=== PATIENT | female | born 1955 | race African-American/Black ===

== ENCOUNTER 2016-05-16 18:58 | Inpatient (IN) | payer OTHER ==
[~2016-05-16] VITALS: Ht 162.6 cm; Wt 151.0 kg
[~2016-05-16 18:58] MED LIST: ALBU18HF2 IH; ASPI-1035 PO; CALC-25 PO; FERR-43 PO; LISI1TAB13 PO; MULT-1146 PO; PANT40TA4 PO; POTA10TA69 PO; QUET25TA PO; QUET300T2 PO; TRAZ-132 PO
[2016-05-16] MEDS ORDERED: METHYLPREDNISOLONE SOD SUCC 125 MG/2 ML VIAL IV STA (19:12)
[2016-05-16] MEDS ORDERED: IPRATROPIUM BROMIDE (0.02%) 0.5MG/2.5ML NEB HHN STA (19:12)
[2016-05-16] MEDS ORDERED: ALBUTEROL (0.083%) 2.5MG/3ML NEB HHN SCH (19:30)
[2016-05-16] MEDS ORDERED: IPRATROPIUM/ALBUTEROL 0.5-3(2.5)MG/3ML NEB ONE (19:53)
[2016-05-16 20:12] LABS: BASOPHILS % 0.2 % (0.0-2.0); EOSINOPHILS % 7.1 % (0.0-5.0); HEMATOCRIT. 32.6 % (36.0-48.0); LYMPHOCYTES % 14.7 % (20.0-50.0); MEAN CORPUSCULAR HGB CONC 33.7 g/dL (31.0-37.0); MEAN CORPUSCULAR VOLUME 80.1 fL (81.0-99.0); MEAN PLATELET VOLUME 8.1 fl (7.4-10.4); MONOCYTES % 6.6 % (2.0-8.0); NEUTROPHILS % 71.4 % (40.0-76.0); PLATELET 302 x1000/uL (130-400); RED BLOOD CELL COUNT 4.06 mill/uL (4.2-5.4); WHITE BLOOD COUNT 9.5 x1000/uL (4.5-11.0)
[2016-05-16 20:19] LABS: D-DIMER 0.34 mg/L FEU (<0.50); PROTHROMBIN TIME 10.7 sec
[2016-05-16 20:25] LABS: ALANINE AMINOTRANSFERASE 20 IU/L (13-61); ALBUMIN 3.3 g/dL (3.4-5.0); ANION GAP 13; CALCIUM 8.5 mg/dL (8.5-10.1); CARBON DIOXIDE 32 mEq/L (21-32); CHLORIDE 98 mEq/L (98-107); INDEX HEMOLYSI 1 (1-3); INDEX ICTERIC 1 (1-4); INDEX LIPEMIC 1 (1-3); NT PRO B-TYPE NATRIURETIC PEP 29 pg/mL (5-125); TROPONIN I < 0.02 ng/mL (0.00-0.04); UREA NITROGEN BLOOD 23 mg/dL (7-21); eGFR > 60 mL/min (>60)
[2016-05-16] MEDS ORDERED: ALBUTEROL (0.5%) 2.5MG/0.5ML NEB HHN ONE (22:45)
[2016-05-16] MEDS ORDERED: ALBUTEROL (0.083%) 2.5MG/3ML NEB ONE (22:49)
[2016-05-16 22:50] LABS: BG BASE EXCESS 0.8 mmol/L (-2.0-2.0); BG CARBOXYHEMOGLOBIN 0.1 % (0.5-1.5); BG DEOXYHEMOGLOBIN 3.4 % (0.0-5.0); BG FRACTION INSPIRED OXYGEN 32; BG HCO3 ACT 26.9 mmol/L (22.0-26.0); BG METHEMOGLOBIN 0.3 % (0.0-1.5); BG OXYGEN SATURATION 96.6 % (92.0-98.5); BG OXYHEMOGLOBIN 96.2 % (94.0-97.0); BG PCO2 49.8 mmHg (35.0-45.0); BG PH 7.351 (7.350-7.450); BG PO2 96.1 mmHg (75.0-100.0); BG SAMPLE SITE LEFT RADIAL; BG TOTAL HEMOGLOBIN 11.8 g/dL (12.0-18.0); BG VENT MODE NASAL CANNULA
[2016-05-16] MEDS ORDERED: CLONIDINE 0.1MG TABLET PO PRN (23:00)
[2016-05-16] MEDS ORDERED: ONDANSETRON HCL 4MG/2ML VIAL IV PRN (23:00)
[2016-05-16] MEDS ORDERED: MAGNESIUM/ALUMINUM HYDROXIDE/SIMETHICONE 30ML UDC PO PRN (23:00)
[2016-05-16] MEDS ORDERED: DOCUSATE SODIUM 100MG CAPSULE PO PRN (23:00)
[2016-05-16 23:30] VITALS: BP 95/51
[2016-05-16 23:32] LABS: MAGNESIUM 1.7 mg/dL (1.8-2.4)
[2016-05-16 23:38] LABS: CALCIUM 8.4 mg/dL (8.5-10.1)
[2016-05-17] MEDS ORDERED: BUDESONIDE 0.5MG/2ML NEB HHN NR (00:22)
[2016-05-17] MEDS: IPRATROPIUM/ALBUTEROL 0.5-3(2.5)MG/3ML NEB INH PRN ×2 (00:42→04:31)
[2016-05-17] MEDS ORDERED: SPIR25TA4 PO (01:34)
[2016-05-17] MEDS ORDERED: AMOX500T2 PO (01:34)
[2016-05-17] MEDS ORDERED: METF-516 PO (01:34)
[2016-05-17] MEDS ORDERED: CLAR500T PO (01:34)
[2016-05-17] MEDS ORDERED: FURO20TA4 PO (01:34)
[2016-05-17] MEDS ORDERED: OCD PO (01:36)
[2016-05-17] MEDS ORDERED: DEXTROSE 50% WATER 50ML SYRINGE IV PRN (02:00)
[2016-05-17] MEDS: QUETIAPINE FUMARATE 100MG TABLET PO SCH ×2 (02:13→21:37)
[2016-05-17] MEDS: POTASSIUM CHLORIDE 10MEQ TABLET SR PO SCH ×2 (02:13→08:58)
[2016-05-17] MEDS: TRAZODONE HCL 100MG TABLET PO SCH ×2 (02:14→21:36)
[2016-05-17] MEDS: ACETAMINOPHEN 325MG TABLET PO PRN ×3 (03:36→18:54)
[2016-05-17 04:00] VITALS: BP 96/47
[2016-05-17] MEDS: METHYLPREDNISOLONE SOD SUCC 40 MG/ML VIAL IV SCH ×3 (05:33→21:42)
[2016-05-17] MEDS: BLOOD SUGAR DIAGNOSTIC STRIP TEST SCH ×4 (05:36→21:38)
[2016-05-17 06:17] LABS: HEMATOCRIT. 31.3 % (36.0-48.0); HEMOGLOBIN. 10.5 g/dL (12.0-16.0); MEAN CORPUSCULAR HGB CONC 33.5 g/dL (31.0-37.0); MEAN CORPUSCULAR VOLUME 80.7 fL (81.0-99.0); MEAN PLATELET VOLUME 8.4 fl (7.4-10.4); PLATELET 305 x1000/uL (130-400); RED BLOOD CELL COUNT 3.88 mill/uL (4.2-5.4); WHITE BLOOD COUNT 8.8 x1000/uL (4.5-11.0)
[2016-05-17 07:42] LABS: CREATINE KINASE 123 IU/L (26-192); CREATINE KINASE MB FRACTION 0.6 ng/mL (0.5-3.6); INDEX HEMOLYSI 1 (1-3); TROPONIN I < 0.02 ng/mL (0.00-0.04)
[2016-05-17 07:49] LABS: DIFFERENTIAL COMMENT 1
[2016-05-17 07:51] LABS: THYROID STIMULATING HORMONE 0.34 uIU/mL (0.36-3.74)
[2016-05-17 07:52] LABS: *AMPHETAMINES SCREEN URINE NEGATIVE (NEGATIVE); *BARBITURATES SCREEN URINE NEGATIVE (NEGATIVE); *BENZODIAZEPINES SCREEN URINE NEGATIVE (NEGATIVE); *COCAINE SCREEN URINE NEGATIVE (NEGATIVE); CANNABINOID URINE SCREEN NEGATIVE (NEGATIVE); ECSTASY MDMA SCREEN URINE CONF.TEST INDICATED (NEGATIVE); METHADONE URINE SCREEN NEGATIVE (NEGATIVE); OPIATES URINE SCREEN NEGATIVE (NEGATIVE); PHENCYCLIDINE URINE SCREEN NEGATIVE (NEGATIVE)
[2016-05-17 08:00] VITALS: BP 101/48
[2016-05-17] MEDS: INSULIN LISPRO 100 UNITS/ML SUBCUT SCH ×5 (08:10→21:00)
[2016-05-17] MEDS: ENOXAPARIN 30MG/0.3ML SYR SUBCUT SCH ×2 (08:58→21:38)
[2016-05-17] MEDS: FUROSEMIDE 20MG TABLET PO SCH (08:58)
[2016-05-17] MEDS: MULTIVITAMINS,THER W-MINERALS TABLET PO SCH (08:58)
[2016-05-17] MEDS: SPIRONOLACTONE 25MG TABLET PO SCH (08:58)
[2016-05-17] MEDS: METFORMIN HCL 500MG SR TABLET 24HR PO SCH (08:59)
[2016-05-17] MEDS: FERROUS SULFATE 325MG TABLET PO SCH (08:59)
[2016-05-17] MEDS: ASPIRIN 81MG EC TABLET PO SCH (08:59)
[2016-05-17] MEDS: QUETIAPINE FUMARATE 25MG TABLET PO SCH (08:59)
[2016-05-17] MEDS ORDERED: PANTOPRAZOLE 40MG DR TABLET PO SCH (09:00)
[2016-05-17] MEDS: LISINOPRIL 20MG TABLET PO SCH (09:00)
[2016-05-17] MEDS: HYDROCHLOROTHIAZIDE 25MG TABLET PO SCH (09:00)
[2016-05-17] MEDS: CALCIUM CARBONATE/VITAMIN D3 500MG TABLET PO SCH (09:02)
[2016-05-17] MEDS: BUDESONIDE 0.5MG/2ML NEB HHN SCH ×2 (10:06→21:12)
[2016-05-17] MEDS: IPRATROPIUM/ALBUTEROL 0.5-3(2.5)MG/3ML NEB HHN SCH ×4 (10:06→21:12)
[2016-05-17] MEDS ORDERED: MAGNESIUM 2 G PREMIX 50 ML IV NR (11:00)
[2016-05-17 12:00] VITALS: BP 92/63
[2016-05-17 13:00] LABS: BG BASE EXCESS -2.6 mmol/L (-2.0-2.0); BG CARBOXYHEMOGLOBIN 0.1 % (0.5-1.5); BG HCO3 ACT 22.7 mmol/L (22.0-26.0); BG OXYHEMOGLOBIN 90.9 % (94.0-97.0); BG PCO2 41.5 mmHg (35.0-45.0); BG PH 7.356 (7.350-7.450); BG PO2 63.1 mmHg (75.0-100.0); BG SAMPLE SITE RIGHT RADIAL; BG TOTAL HEMOGLOBIN 11.7 g/dL (12.0-18.0); BG VENT MODE ROOM AIR
[2016-05-17] MEDS: AMOXICILLIN 500 MG CAPSULE PO SCH ×2 (13:21→21:36)
[2016-05-17] MEDS: CLARITHROMYCIN 500MG TABLET PO SCH ×2 (13:21→21:36)
[2016-05-17 15:39] LABS: PLATELET ESTIMATE NORMAL
[2016-05-17 16:00] VITALS: BP 106/55
[2016-05-17] MEDS ORDERED: AMOXICILLIN TRIHYDRATE 500 MG PO SCH (17:00)
[2016-05-17] MEDS ORDERED: PANTOPRAZOLE SODIUM 40 MG/VIAL IV SCH (17:00)
[2016-05-17] MEDS ORDERED: AMOXICILLIN TRIHYDRATE PO SCH (17:00)
[2016-05-17 17:13] LABS: CREATINE KINASE 118 IU/L (26-192); INDEX HEMOLYSI 1 (1-3); TROPONIN I < 0.02 ng/mL (0.00-0.04)
[2016-05-17] MEDS: GUAIFENESIN 200MG/10ML SUGAR FREE UDC PO PRN (17:46)
[2016-05-17 20:00] VITALS: BP 100/59
[2016-05-17] MEDS: GUAIFENESIN 600MG ER TABLET PO SCH (21:36)
[2016-05-17] MEDS: PANTOPRAZOLE 40MG DR TABLET PO SCH (21:38)
[2016-05-18] VITALS: BP 91/43
[2016-05-18] MEDS: IPRATROPIUM/ALBUTEROL 0.5-3(2.5)MG/3ML NEB HHN SCH ×7 (00:45→20:00)
[2016-05-18] MEDS: ACETAMINOPHEN 325MG TABLET PO PRN ×3 (01:01→21:05)
[2016-05-18 04:00] VITALS: BP 122/64
[2016-05-18 06:35] LABS: BASOPHILS % 0.1 % (0.0-2.0); DIFFERENTIAL COMMENT 0; HEMATOCRIT. 30.2 % (36.0-48.0); HEMOGLOBIN. 10.2 g/dL (12.0-16.0); LYMPHOCYTES % 9.2 % (20.0-50.0); MEAN CORPUSCULAR HEMOGLOBIN 26.8 pg (28.0-32.0); MEAN CORPUSCULAR HGB CONC 33.8 g/dL (31.0-37.0); MEAN CORPUSCULAR VOLUME 79.2 fL (81.0-99.0); MEAN PLATELET VOLUME 8.3 fl (7.4-10.4); MONOCYTES % 8.1 % (2.0-8.0); NEUTROPHILS % 82.6 % (40.0-76.0); PLATELET 308 x1000/uL (130-400); RED BLOOD CELL COUNT 3.81 mill/uL (4.2-5.4); RED CELL DISTRIBUTION WIDTH 14.6 % (11.6-14.6); WHITE BLOOD COUNT 12.3 x1000/uL (4.5-11.0)
[2016-05-18 06:53] LABS: ANION GAP 13; CALCIUM 8.6 mg/dL (8.5-10.1); CARBON DIOXIDE 31 mEq/L (21-32); CHLORIDE 98 mEq/L (98-107); INDEX HEMOLYSI 1 (1-3); INDEX ICTERIC 1 (1-4); INDEX LIPEMIC 1 (1-3); UREA NITROGEN BLOOD 34 mg/dL (7-21); eGFR > 60 mL/min (>60)
[2016-05-18] MEDS: METHYLPREDNISOLONE SOD SUCC 40 MG/ML VIAL IV SCH ×3 (07:00→21:07)
[2016-05-18] MEDS: BLOOD SUGAR DIAGNOSTIC STRIP TEST SCH ×4 (07:00→21:07)
[2016-05-18 08:00] VITALS: BP 128/73
[2016-05-18] MEDS: INSULIN LISPRO 100 UNITS/ML SUBCUT SCH ×4 (08:10→22:00)
[2016-05-18] MEDS: BUDESONIDE 0.5MG/2ML NEB HHN SCH ×2 (08:11→20:01)
[2016-05-18] MEDS: CALCIUM CARBONATE/VITAMIN D3 500MG TABLET PO SCH (08:26)
[2016-05-18] MEDS: ASPIRIN 81MG EC TABLET PO SCH (08:26)
[2016-05-18] MEDS: FUROSEMIDE 20MG TABLET PO SCH (08:26)
[2016-05-18] MEDS: ENOXAPARIN 30MG/0.3ML SYR SUBCUT SCH ×2 (08:26→21:06)
[2016-05-18] MEDS: MULTIVITAMINS,THER W-MINERALS TABLET PO SCH (08:26)
[2016-05-18] MEDS: GUAIFENESIN 600MG ER TABLET PO SCH ×2 (08:26→21:04)
[2016-05-18] MEDS: QUETIAPINE FUMARATE 25MG TABLET PO SCH (08:26)
[2016-05-18] MEDS: LISINOPRIL 20MG TABLET PO SCH (08:27)
[2016-05-18] MEDS: SPIRONOLACTONE 25MG TABLET PO SCH (08:27)
[2016-05-18] MEDS: POTASSIUM CHLORIDE 10MEQ TABLET SR PO SCH (08:27)
[2016-05-18] MEDS: PANTOPRAZOLE 40MG DR TABLET PO SCH ×2 (08:28→21:06)
[2016-05-18] MEDS: CLARITHROMYCIN 500MG TABLET PO SCH ×2 (08:28→21:06)
[2016-05-18] MEDS: FERROUS SULFATE 325MG TABLET PO SCH (08:28)
[2016-05-18] MEDS: AZITHROMYCIN 500 MG TABLET PO SCH (08:28)
[2016-05-18] MEDS: METFORMIN HCL 500MG SR TABLET 24HR PO SCH (08:28)
[2016-05-18] MEDS: HYDROCHLOROTHIAZIDE 25MG TABLET PO SCH (08:28)
[2016-05-18] MEDS: AMOXICILLIN 500 MG CAPSULE PO SCH ×2 (09:38→21:05)
[2016-05-18 12:00] VITALS: BP 98/49
[2016-05-18] MEDS: GUAIFENESIN 200MG/10ML SUGAR FREE UDC PO PRN (12:10)
[2016-05-18] MEDS: IPRATROPIUM/ALBUTEROL 0.5-3(2.5)MG/3ML NEB HHN PRN (13:56)
[2016-05-18 16:00] VITALS: BP 93/45
[2016-05-18] MEDS ORDERED: DEXTROSE 50% WATER 50ML SYRINGE IV PRN (18:00)
[2016-05-18] MEDS ORDERED: INSULIN LISPRO 100 UNITS/ML SUBCUT NR (18:15)
[2016-05-18 20:00] VITALS: BP 111/62
[2016-05-18] MEDS ORDERED: BLOOD SUGAR DIAGNOSTIC STRIP TEST SCH (21:00)
[2016-05-18] MEDS: QUETIAPINE FUMARATE 100MG TABLET PO SCH (21:06)
[2016-05-18] MEDS: TRAZODONE HCL 100MG TABLET PO SCH (21:07)
[2016-05-19] VITALS: BP 110/60
[2016-05-19] MEDS: IPRATROPIUM/ALBUTEROL 0.5-3(2.5)MG/3ML NEB HHN PRN (01:13)
[2016-05-19 04:00] VITALS: BP 93/61
[2016-05-19] MEDS: IPRATROPIUM/ALBUTEROL 0.5-3(2.5)MG/3ML NEB HHN SCH ×5 (05:14→21:12)
[2016-05-19 05:44] LABS: ANION GAP 11; CALCIUM 8.8 mg/dL (8.5-10.1); CARBON DIOXIDE 32 mEq/L (21-32); CHLORIDE 98 mEq/L (98-107); INDEX HEMOLYSI 1 (1-3); INDEX ICTERIC 1 (1-4); INDEX LIPEMIC 1 (1-3); MAGNESIUM 2.4 mg/dL (1.8-2.4); UREA NITROGEN BLOOD 39 mg/dL (7-21); eGFR > 60 mL/min (>60)
[2016-05-19 06:15] LABS: BASOPHILS % 0.1 % (0.0-2.0); DIFFERENTIAL COMMENT 0; HEMATOCRIT. 31.9 % (36.0-48.0); HEMOGLOBIN. 10.5 g/dL (12.0-16.0); LYMPHOCYTES % 10.1 % (20.0-50.0); MEAN CORPUSCULAR HEMOGLOBIN 26.2 pg (28.0-32.0); MEAN CORPUSCULAR HGB CONC 33.1 g/dL (31.0-37.0); MEAN CORPUSCULAR VOLUME 79.4 fL (81.0-99.0); MEAN PLATELET VOLUME 8.5 fl (7.4-10.4); MONOCYTES % 6.2 % (2.0-8.0); NEUTROPHILS % 83.6 % (40.0-76.0); PLATELET 329 x1000/uL (130-400); RED BLOOD CELL COUNT 4.01 mill/uL (4.2-5.4); RED CELL DISTRIBUTION WIDTH 14.9 % (11.6-14.6); WHITE BLOOD COUNT 12.8 x1000/uL (4.5-11.0)
[2016-05-19] MEDS: METHYLPREDNISOLONE SOD SUCC 40 MG/ML VIAL IV SCH (07:10)
[2016-05-19] MEDS: BLOOD SUGAR DIAGNOSTIC STRIP TEST SCH ×4 (07:11→21:54)
[2016-05-19 08:00] VITALS: BP 130/71
[2016-05-19] MEDS: INSULIN LISPRO 100 UNITS/ML SUBCUT SCH ×4 (08:36→21:00)
[2016-05-19] MEDS: CALCIUM CARBONATE/VITAMIN D3 500MG TABLET PO SCH (08:38)
[2016-05-19] MEDS: CLARITHROMYCIN 500MG TABLET PO SCH ×2 (08:38→21:53)
[2016-05-19] MEDS: AMOXICILLIN 500 MG CAPSULE PO SCH ×2 (08:38→21:54)
[2016-05-19] MEDS: PANTOPRAZOLE 40MG DR TABLET PO SCH ×2 (08:38→21:54)
[2016-05-19] MEDS: FERROUS SULFATE 325MG TABLET PO SCH (08:38)
[2016-05-19] MEDS: QUETIAPINE FUMARATE 25MG TABLET PO SCH (08:38)
[2016-05-19] MEDS: AZITHROMYCIN 500 MG TABLET PO SCH (08:39)
[2016-05-19] MEDS: MULTIVITAMINS,THER W-MINERALS TABLET PO SCH (08:39)
[2016-05-19] MEDS: HYDROCHLOROTHIAZIDE 25MG TABLET PO SCH (08:39)
[2016-05-19] MEDS: ASPIRIN 81MG EC TABLET PO SCH (08:39)
[2016-05-19] MEDS: POTASSIUM CHLORIDE 10MEQ TABLET SR PO SCH (08:40)
[2016-05-19] MEDS: METFORMIN HCL 500MG SR TABLET 24HR PO SCH (08:40)
[2016-05-19] MEDS: GUAIFENESIN 600MG ER TABLET PO SCH ×2 (08:40→21:53)
[2016-05-19] MEDS: SPIRONOLACTONE 25MG TABLET PO SCH (08:41)
[2016-05-19] MEDS: ENOXAPARIN 30MG/0.3ML SYR SUBCUT SCH ×2 (08:42→21:00)
[2016-05-19] MEDS: BUDESONIDE 0.5MG/2ML NEB HHN SCH ×2 (09:17→21:12)
[2016-05-19 12:00] VITALS: BP 113/65
[2016-05-19 16:00] VITALS: BP 122/79
[2016-05-19 20:00] VITALS: BP 124/57
[2016-05-19] MEDS: QUETIAPINE FUMARATE 100MG TABLET PO SCH (21:53)
[2016-05-19] MEDS: TRAZODONE HCL 100MG TABLET PO SCH (21:53)
[2016-05-20] VITALS: BP 95/53
[2016-05-20] MEDS: IPRATROPIUM/ALBUTEROL 0.5-3(2.5)MG/3ML NEB HHN SCH ×4 (00:33→12:12)
[2016-05-20 04:00] VITALS: BP 117/66
[2016-05-20 06:47] LABS: BASOPHILS % 0.1 % (0.0-2.0); DIFFERENTIAL COMMENT 0; EOSINOPHILS % 0.1 % (0.0-5.0); HEMATOCRIT. 31.2 % (36.0-48.0); HEMOGLOBIN. 10.5 g/dL (12.0-16.0); MEAN CORPUSCULAR HEMOGLOBIN 26.5 pg (28.0-32.0); MEAN CORPUSCULAR HGB CONC 33.5 g/dL (31.0-37.0); MEAN PLATELET VOLUME 8.3 fl (7.4-10.4); MONOCYTES % 9.4 % (2.0-8.0); NEUTROPHILS % 48.4 % (40.0-76.0); PLATELET 304 x1000/uL (130-400); RED BLOOD CELL COUNT 3.95 mill/uL (4.2-5.4); RED CELL DISTRIBUTION WIDTH 14.8 % (11.6-14.6); WHITE BLOOD COUNT 11.6 x1000/uL (4.5-11.0)
[2016-05-20] MEDS: BLOOD SUGAR DIAGNOSTIC STRIP TEST SCH ×2 (06:52→12:53)
[2016-05-20 07:56] LABS: ANION GAP 10; CALCIUM 8.7 mg/dL (8.5-10.1); CARBON DIOXIDE 35 mEq/L (21-32); CHLORIDE 97 mEq/L (98-107); INDEX HEMOLYSI 1 (1-3); INDEX ICTERIC 1 (1-4); INDEX LIPEMIC 1 (1-3); MAGNESIUM 2.3 mg/dL (1.8-2.4); UREA NITROGEN BLOOD 34 mg/dL (7-21); eGFR > 60 mL/min (>60)
[2016-05-20 08:02] VITALS: BP 109/72
[2016-05-20] MEDS: BUDESONIDE 0.5MG/2ML NEB HHN SCH (08:07)
[2016-05-20] MEDS: INSULIN LISPRO 100 UNITS/ML SUBCUT SCH ×2 (08:10→12:53)
[2016-05-20] MEDS: PANTOPRAZOLE 40MG DR TABLET PO SCH (08:56)
[2016-05-20] MEDS: METFORMIN HCL 500MG SR TABLET 24HR PO SCH (08:59)
[2016-05-20] MEDS: MULTIVITAMINS,THER W-MINERALS TABLET PO SCH (08:59)
[2016-05-20] MEDS: AMOXICILLIN 500 MG CAPSULE PO SCH (08:59)
[2016-05-20] MEDS: CLARITHROMYCIN 500MG TABLET PO SCH (08:59)
[2016-05-20] MEDS: CALCIUM CARBONATE/VITAMIN D3 500MG TABLET PO SCH (08:59)
[2016-05-20] MEDS: HYDROCHLOROTHIAZIDE 25MG TABLET PO SCH (08:59)
[2016-05-20] MEDS: AZITHROMYCIN 500 MG TABLET PO SCH (08:59)
[2016-05-20] MEDS: ASPIRIN 81MG EC TABLET PO SCH (08:59)
[2016-05-20] MEDS: FERROUS SULFATE 325MG TABLET PO SCH (09:00)
[2016-05-20] MEDS: ENOXAPARIN 30MG/0.3ML SYR SUBCUT SCH (09:00)
[2016-05-20] MEDS: GUAIFENESIN 200MG/10ML SUGAR FREE UDC PO PRN (09:00)
[2016-05-20] MEDS: GUAIFENESIN 600MG ER TABLET PO SCH (09:12)
[2016-05-20] MEDS: QUETIAPINE FUMARATE 25MG TABLET PO SCH (09:12)
[2016-05-20 12:00] VITALS: BP 98/51
[2016-05-20 14:50] VITALS: BP 98/51
[2016-05-20] MEDS ORDERED: ENOXAPARIN 40MG/0.4ML SYR SUBCUT SCH (21:00)
== END 2016-05-20 16:25 | disposition home or self-care (01) | DRG 140 ==
LOC: ER 19:00 → 7WST 22:24
PROVIDERS: ADMIT Internal Medicine; ATTEND Internal Medicine
DX: J44.0 Chronic obstructive pulmonary disease with (acute) lower respiratory infection (principal); J96.00 Acute respiratory failure, unspecified whether with hypoxia or hypercapnia; I50.33 Acute on chronic diastolic (congestive) heart failure; J45.901 Unspecified asthma with (acute) exacerbation; E83.42 Hypomagnesemia; Z68.43 Body mass index [BMI] 50.0-59.9, adult; R13.10 Dysphagia, unspecified; I11.0 Hypertensive heart disease with heart failure; K21.9 Gastro-esophageal reflux disease without esophagitis; E11.9 Type 2 diabetes mellitus without complications; D64.9 Anemia, unspecified; F32.9 Major depressive disorder, single episode, unspecified; M10.9 Gout, unspecified; B96.81 Helicobacter pylori [H. pylori] as the cause of diseases classified elsewhere; F15.90 Other stimulant use, unspecified, uncomplicated; J32.9 Chronic sinusitis, unspecified; M79.7 Fibromyalgia; J20.9 Acute bronchitis, unspecified; E87.6 Hypokalemia; E66.9 Obesity, unspecified; F41.9 Anxiety disorder, unspecified; I83.90 Asymptomatic varicose veins of unspecified lower extremity; G43.909 Migraine, unspecified, not intractable, without status migrainosus; K59.00 Constipation, unspecified; R31.9 Hematuria, unspecified; Z82.5 Family history of asthma and other chronic lower respiratory diseases; Z88.8 Allergy status to other drugs, medicaments and biological substances; Z79.899 Other long term (current) drug therapy; Z90.710 Acquired absence of both cervix and uterus
CPT/HCPCS: 36415; 36600; 71010; 80048; 80053; 80061; 80305; 82375; 82550; 82553; 82805; 82962; 83036; 83735; 83880; 84443; 84484; 85025; 85379; 85610; 87070; 93005; 93306; 93970; 94640; 94664; 96374; 97162; 99291; J1650; J1815; J2920; J2930; J3475; J7040; J7611; J7620; J7626

== ENCOUNTER 2016-06-22 13:32 | Emergency (ER) | payer OTHER ==
[~2016-06-22] VITALS: Ht 162.6 cm; Wt 136.0 kg
[~2016-06-22 13:32] MED LIST changes: +AMOX500T2 PO; -CALC-25 PO; +CLAR500T PO; +FURO20TA4 PO; +METF-516 PO; +OCD PO; +SPIR25TA4 PO
[2016-06-22] MEDS ORDERED: KETOROLAC 30MG/ML VIAL IM ONE (16:30)
[2016-06-22 17:36] VITALS: BP 131/81
== END 2016-06-22 17:37 | disposition home or self-care (01) ==
LOC: ER 13:32
DX: F25.9 Schizoaffective disorder, unspecified (principal); M79.7 Fibromyalgia; J45.909 Unspecified asthma, uncomplicated; I10 Essential (primary) hypertension; Z98.890 Other specified postprocedural states; Z90.710 Acquired absence of both cervix and uterus; Z79.82 Long term (current) use of aspirin; Z92.29 Personal history of other drug therapy
CPT/HCPCS: 96372; 99283; J1885; Z7610

== ENCOUNTER 2016-06-22 23:53 | Inpatient (IN) | payer OTHER ==
[~2016-06-22] VITALS: Ht 162.6 cm; Wt 149.2 kg
[2016-06-23] VITALS (8 sets, daily range): BP systolic 83–145; BP diastolic 32–72
[2016-06-23] MEDS ORDERED: SODIUM CHLORIDE 0.9% 1,000 ML IV ONE ×2 (01:05)
[2016-06-23 01:53] LABS: BASOPHILS % 0.3 % (0.0-2.0); DIFFERENTIAL COMMENT 0; EOSINOPHILS % 2.5 % (0.0-5.0); HEMATOCRIT. 29.1 % (36.0-48.0); HEMOGLOBIN. 9.8 g/dL (12.0-16.0); LYMPHOCYTES % 28.3 % (20.0-50.0); MEAN CORPUSCULAR HEMOGLOBIN 26.8 pg (28.0-32.0); MEAN CORPUSCULAR HGB CONC 33.6 g/dL (31.0-37.0); MEAN CORPUSCULAR VOLUME 79.8 fL (81.0-99.0); MEAN PLATELET VOLUME 8.5 fl (7.4-10.4); MONOCYTES % 8.1 % (2.0-8.0); NEUTROPHILS % 60.8 % (40.0-76.0); PLATELET 299 x1000/uL (130-400); RED BLOOD CELL COUNT 3.64 mill/uL (4.2-5.4); RED CELL DISTRIBUTION WIDTH 15.2 % (11.6-14.6); WHITE BLOOD COUNT 9.5 x1000/uL (4.5-11.0)
[2016-06-23 01:58] LABS: PARTIAL THROMBOPLASTIN TIME 25.7 sec (24.0-34.0); PROTHROMBIN TIME 10.8 sec
[2016-06-23 02:09] LABS: ALANINE AMINOTRANSFERASE 12 IU/L (13-61); ALBUMIN 2.9 g/dL (3.4-5.0); CALCIUM 8.5 mg/dL (8.5-10.1); CARBON DIOXIDE 26 mEq/L (21-32); CHLORIDE 105 mEq/L (98-107); ETHANOL BLOOD < 10 mg/dL; INDEX HEMOLYSI 1 (1-3); INDEX ICTERIC 1 (1-4); INDEX LIPEMIC 1 (1-3); LIPASE 160 IU/L (73-393); NT PRO B-TYPE NATRIURETIC PEP 61 pg/mL (5-125); TROPONIN I < 0.02 ng/mL (0.00-0.04); UREA NITROGEN BLOOD 28 mg/dL (7-21); eGFR 29 mL/min (>60)
[2016-06-23 02:11] LABS: ACETAMINOPHEN < 2 ug/mL (10-30); ANION GAP 13; MAGNESIUM 1.6 mg/dL (1.8-2.4)
[2016-06-23] MEDS ORDERED: POTASSIUM CHLORIDE 20MEQ TABLET SR PO ONE (02:45)
[2016-06-23] MEDS ORDERED: MAGNESIUM 1 G PREMIX 100 ML IV ONE (02:45)
[2016-06-23 07:48] LABS: *AMPHETAMINES SCREEN URINE NEGATIVE (NEGATIVE); *BARBITURATES SCREEN URINE NEGATIVE (NEGATIVE); *BENZODIAZEPINES SCREEN URINE NEGATIVE (NEGATIVE); *COCAINE SCREEN URINE NEGATIVE (NEGATIVE); CANNABINOID URINE SCREEN NEGATIVE (NEGATIVE); ECSTASY MDMA SCREEN URINE NEGATIVE (NEGATIVE); METHADONE URINE SCREEN NEGATIVE (NEGATIVE); OPIATES URINE SCREEN NEGATIVE (NEGATIVE); PHENCYCLIDINE URINE SCREEN NEGATIVE (NEGATIVE)
[2016-06-23] MEDS ORDERED: DEXTROSE 50% WATER 50ML SYRINGE IV PRN (08:15)
[2016-06-23 08:58] LABS: ANION GAP 10; CALCIUM 8.5 mg/dL (8.5-10.1); CARBON DIOXIDE 29 mEq/L (21-32); CHLORIDE 106 mEq/L (98-107); CREATINE KINASE 146 IU/L (26-192); INDEX HEMOLYSI 1 (1-3); INDEX ICTERIC 1 (1-4); INDEX LIPEMIC 1 (1-3); MAGNESIUM 2.2 mg/dL (1.8-2.4); TROPONIN I < 0.02 ng/mL (0.00-0.04); UREA NITROGEN BLOOD 28 mg/dL (7-21); eGFR 40 mL/min (>60)
[2016-06-23] MEDS: SODIUM CHLORIDE 0.9% 1,000 ML IV SCH ×3 (09:32→21:18)
[2016-06-23] MEDS: BLOOD SUGAR DIAGNOSTIC STRIP TEST SCH ×3 (11:22→20:35)
[2016-06-23] MEDS: INSULIN LISPRO 100 UNITS/ML SUBCUT SCH ×3 (12:20→20:40)
[2016-06-23 12:48] LABS: T3 FREE 2.28 pg/ml (2.18-3.98); T4 FREE 0.93 ng/dL (0.76-1.46)
[2016-06-23 17:51] LABS: CREATINE KINASE 137 IU/L (26-192); CREATINE KINASE MB FRACTION 0.8 ng/mL (0.5-3.6); INDEX HEMOLYSI 1 (1-3); TROPONIN I < 0.02 ng/mL (0.00-0.04)
[2016-06-23] MEDS: IPRATROPIUM/ALBUTEROL 0.5-3(2.5)MG/3ML NEB HHN PRN ×2 (18:34→21:36)
[2016-06-23 23:38] LABS: CREATINE KINASE 126 IU/L (26-192); CREATINE KINASE MB FRACTION 0.7 ng/mL (0.5-3.6); INDEX HEMOLYSI 1 (1-3); TROPONIN I < 0.02 ng/mL (0.00-0.04)
[2016-06-24] VITALS (13 sets, daily range): BP systolic 100–135; BP diastolic 36–85
[2016-06-24] MEDS ORDERED: TRAZODONE HCL 100MG TABLET PO SCH ×2 (03:00→21:00)
[2016-06-24] MEDS ORDERED: QUETIAPINE FUMARATE 100MG TABLET PO SCH (03:00)
[2016-06-24] MEDS: SODIUM CHLORIDE 45ML SPRAY NS PRN ×2 (03:11→12:34)
[2016-06-24] MEDS: SODIUM CHLORIDE 0.9% 1,000 ML IV SCH (04:15)
[2016-06-24] MEDS: BLOOD SUGAR DIAGNOSTIC STRIP TEST SCH ×2 (05:55→12:11)
[2016-06-24 06:16] LABS: BASOPHILS % 0.5 % (0.0-2.0); EOSINOPHILS % 6.7 % (0.0-5.0); HEMATOCRIT. 29.2 % (36.0-48.0); HEMOGLOBIN. 9.9 g/dL (12.0-16.0); LYMPHOCYTES % 38.4 % (20.0-50.0); MEAN CORPUSCULAR HEMOGLOBIN 27.1 pg (28.0-32.0); MEAN CORPUSCULAR HGB CONC 33.7 g/dL (31.0-37.0); MEAN CORPUSCULAR VOLUME 80.4 fL (81.0-99.0); MEAN PLATELET VOLUME 8.6 fl (7.4-10.4); MONOCYTES % 6.3 % (2.0-8.0); NEUTROPHILS % 48.1 % (40.0-76.0); PLATELET 298 x1000/uL (130-400); RED BLOOD CELL COUNT 3.64 mill/uL (4.2-5.4); WHITE BLOOD COUNT 7.7 x1000/uL (4.5-11.0)
[2016-06-24 07:19] LABS: CHLORIDE 106 mEq/L (98-107); INDEX HEMOLYSI 1 (1-3); INDEX ICTERIC 1 (1-4); INDEX LIPEMIC 1 (1-3)
[2016-06-24] MEDS: INSULIN LISPRO 100 UNITS/ML SUBCUT SCH ×2 (07:20→12:11)
[2016-06-24 08:25] LABS: ANION GAP 15; CALCIUM 8.4 mg/dL (8.5-10.1); CARBON DIOXIDE 25 mEq/L (21-32); UREA NITROGEN BLOOD 20 mg/dL (7-21); eGFR > 60 mL/min (>60)
[2016-06-24] MEDS ORDERED: QUETIAPINE FUMARATE 25MG TABLET PO SCH (09:00)
[2016-06-24] MEDS: IPRATROPIUM/ALBUTEROL 0.5-3(2.5)MG/3ML NEB HHN PRN (12:22)
== END 2016-06-24 17:00 | disposition home health service (06) | DRG 460 ==
LOC: ER 06-23 00:10 → 3WST 06-23 04:22
PROVIDERS: ADMIT Internal Medicine; ATTEND Internal Medicine
DX: N17.9 Acute kidney failure, unspecified (principal); G93.40 Encephalopathy, unspecified; J45.901 Unspecified asthma with (acute) exacerbation; Z68.43 Body mass index [BMI] 50.0-59.9, adult; E11.9 Type 2 diabetes mellitus without complications; I10 Essential (primary) hypertension; D50.9 Iron deficiency anemia, unspecified; F32.9 Major depressive disorder, single episode, unspecified; E86.0 Dehydration; M10.9 Gout, unspecified; E66.9 Obesity, unspecified; F20.9 Schizophrenia, unspecified; F41.9 Anxiety disorder, unspecified; M79.7 Fibromyalgia; R31.9 Hematuria, unspecified; I83.90 Asymptomatic varicose veins of unspecified lower extremity; R31.29 Other microscopic hematuria; Z91.013 Allergy to seafood; Z90.710 Acquired absence of both cervix and uterus
CPT/HCPCS: 36415; 70450; 71010; 80048; 80053; 80305; 80307; 80329; 82550; 82553; 82962; 83540; 83550; 83605; 83690; 83735; 83880; 84439; 84443; 84481; 84484; 85025; 85044; 85610; 85730; 87040; 93005; 94640; 96361; 96365; 96366; 97162; 97165; 97535; 99291; G0482; J1815; J3475; J7030; J7620

== ENCOUNTER 2016-10-29 11:04 | Inpatient (IN) | payer OTHER ==
[~2016-10-29] VITALS: Ht 162.6 cm; Wt 153.3 kg
[~2016-10-29 11:04] MED LIST changes: -ASPI-1035 PO; +ASPI-1159 PO; +POTA10TA11 PO; -POTA10TA69 PO
[2016-10-29] MEDS ORDERED: FUROSEMIDE 40MG/4ML VIAL IV STA (11:41)
[2016-10-29 11:59] LABS: BASOPHILS % 0.6 % (0.0-2.0); EOSINOPHILS % 7.5 % (0.0-5.0); HEMATOCRIT. 29.6 % (36.0-48.0); HEMOGLOBIN. 10.1 g/dL (12.0-16.0); LYMPHOCYTES % 30.4 % (20.0-50.0); MEAN CORPUSCULAR HEMOGLOBIN 26.6 pg (28.0-32.0); MEAN CORPUSCULAR VOLUME 77.6 fL (81.0-99.0); MEAN PLATELET VOLUME 8.1 fl (7.4-10.4); MONOCYTES % 5.3 % (2.0-8.0); NEUTROPHILS % 56.2 % (40.0-76.0); PLATELET 282 x1000/uL (130-400); RED BLOOD CELL COUNT 3.81 mill/uL (4.2-5.4); RED CELL DISTRIBUTION WIDTH 15.2 % (11.6-14.6)
[2016-10-29 12:00] LABS: BG CARBOXYHEMOGLOBIN 0.2 % (0.5-1.5); BG FRACTION INSPIRED OXYGEN 21; BG METHEMOGLOBIN 0.1 % (0.0-1.5); BG OXYHEMOGLOBIN 85.7 % (94.0-97.0); BG PCO2 34.4 mmHg (35.0-45.0); BG PH 7.423 (7.350-7.450); BG PO2 52.9 mmHg (75.0-100.0); BG SAMPLE SITE RIGHT BRACHIAL; BG TOTAL HEMOGLOBIN 10.8 g/dL (12.0-18.0); BG VENT MODE ROOM AIR
[2016-10-29 12:11] LABS: INR 1.1; PARTIAL THROMBOPLASTIN TIME 23.6 sec (23.4-31.0); PROTHROMBIN TIME 10.9 sec (9.4-11.6)
[2016-10-29 12:17] LABS: CARBON DIOXIDE 25 mEq/L (21-32); CHLORIDE 108 mEq/L (98-107); TROPONIN I 0.03 ng/mL (0.00-0.04)
[2016-10-29 12:19] LABS: D-DIMER 8.17 mg/L FEU (<0.50)
[2016-10-29] MEDS ORDERED: ENOXAPARIN 150MG/ML SYR SUBCUT ONE (13:00)
[2016-10-29] MEDS ORDERED: IPRATROPIUM/ALBUTEROL 0.5-3(2.5)MG/3ML NEB HHN PRN (13:30)
[2016-10-29] MEDS ORDERED: MORPHINE SULFATE 4 MG/ML CPJ (NOT FOR IM USE) IV ONE (13:45)
[2016-10-29 15:02] VITALS: BP 87/52
[2016-10-29 15:05] VITALS: BP 87/52
[2016-10-29 16:00] VITALS: BP_SYST 113; BP_SYST 87; BP_DIAS 52; BP_DIAS 71
[2016-10-29] MEDS ORDERED: CLONIDINE 0.1MG TABLET PO PRN (16:00)
[2016-10-29] MEDS ORDERED: ACETAMINOPHEN 325MG TABLET PO PRN (16:00)
[2016-10-29] MEDS ORDERED: IPRATROPIUM/ALBUTEROL 0.5-3(2.5)MG/3ML NEB INH PRN (16:00)
[2016-10-29] MEDS ORDERED: ONDANSETRON HCL 4MG/2ML VIAL IV PRN (16:00)
[2016-10-29] MEDS ORDERED: ENOXAPARIN 40MG/0.4ML SYR SUBCUT SCH (16:30)
[2016-10-29 17:20] LABS: AMYLASE 44 IU/L (25-115)
[2016-10-29] MEDS: INSULIN LISPRO 100 UNITS/ML SUBCUT SCH ×2 (18:00→21:00)
[2016-10-29] MEDS ORDERED: DEXTROSE 50% WATER 50ML SYRINGE IV PRN (18:00)
[2016-10-29] MEDS: BLOOD SUGAR DIAGNOSTIC STRIP TEST SCH ×2 (18:02→21:00)
[2016-10-29] MEDS: FUROSEMIDE 40MG/4ML VIAL IV SCH (18:29)
[2016-10-29] MEDS: HYDROCODONE/ACETAMINOPHEN 5/325MG TABLET PO PRN (18:32)
[2016-10-29 20:00] VITALS: BP 96/53
[2016-10-29] MEDS ORDERED: BLOOD SUGAR DIAGNOSTIC STRIP TEST SCH (21:00)
[2016-10-29] MEDS ORDERED: INSULIN LISPRO 100 UNITS/ML SUBCUT SCH (21:00)
[2016-10-29 21:35] LABS: CLARITY URINE CLEAR (CLEAR); COLOR URINE YELLOW (YELLOW); GLUCOSE URINE NEGATIVE (NEGATIVE); KETONES URINE NEGATIVE (NEGATIVE); LEUKOCYTE ESTERASE URINE NEGATIVE (NEGATIVE); NITRITE URINE NEGATIVE (NEGATIVE); OCCULT BLOOD URINE 2+ (NEGATIVE); PROTEIN URINE NEGATIVE (NEGATIVE); SPECIFIC GRAVITY URINE 1.011 (1.005-1.030); UROBILINOGEN URINE 0.2 E.U./dL (0.2-1.0)
[2016-10-29 21:51] LABS: *AMPHETAMINES SCREEN URINE NEGATIVE (NEGATIVE); *BARBITURATES SCREEN URINE NEGATIVE (NEGATIVE); *BENZODIAZEPINES SCREEN URINE NEGATIVE (NEGATIVE); *COCAINE SCREEN URINE NEGATIVE (NEGATIVE); CANNABINOID URINE SCREEN NEGATIVE (NEGATIVE); METHADONE URINE SCREEN NEGATIVE (NEGATIVE); OPIATES URINE SCREEN PRESUMTIVE POSITIVE (NEGATIVE); PHENCYCLIDINE URINE SCREEN NEGATIVE (NEGATIVE)
[2016-10-29] MEDS: TRAZODONE HCL 100MG TABLET PO SCH (22:44)
[2016-10-29] MEDS: QUETIAPINE FUMARATE 100MG TABLET PO SCH (22:44)
[2016-10-29 23:43] LABS: TROPONIN I 0.29 ng/mL (0.00-0.04)
[2016-10-30] VITALS (9 sets, daily range): BP systolic 91–135; BP diastolic 50–67
[2016-10-30] MEDS: BLOOD SUGAR DIAGNOSTIC STRIP TEST SCH ×4 (05:53→21:48)
[2016-10-30] MEDS: INSULIN LISPRO 100 UNITS/ML SUBCUT SCH ×4 (06:18→21:49)
[2016-10-30 06:31] LABS: BASOPHILS % 0.7 % (0.0-2.0); EOSINOPHILS % 6.6 % (0.0-5.0); HEMATOCRIT. 29.9 % (36.0-48.0); HEMOGLOBIN. 9.9 g/dL (12.0-16.0); LYMPHOCYTES % 37.7 % (20.0-50.0); MEAN CORPUSCULAR HEMOGLOBIN 26.1 pg (28.0-32.0); MEAN CORPUSCULAR VOLUME 78.9 fL (81.0-99.0); MEAN PLATELET VOLUME 8.5 fl (7.4-10.4); MONOCYTES % 7.3 % (2.0-8.0); NEUTROPHILS % 47.7 % (40.0-76.0); PLATELET 294 x1000/uL (130-400); RED CELL DISTRIBUTION WIDTH 15.2 % (11.6-14.6)
[2016-10-30 07:20] LABS: CREATINE KINASE MB FRACTION 1.6 ng/mL (0.5-3.6); TROPONIN I 0.2 ng/mL (0.00-0.04)
[2016-10-30] MEDS: FUROSEMIDE 40MG/4ML VIAL IV SCH (08:50)
[2016-10-30] MEDS: ASPIRIN 81MG EC TABLET PO SCH (08:51)
[2016-10-30] MEDS: HYDROCODONE/ACETAMINOPHEN 5/325MG TABLET PO PRN ×2 (08:53→14:46)
[2016-10-30] MEDS ORDERED: ENOXAPARIN 40MG/0.4ML SYR SUBCUT SCH (09:00)
[2016-10-30 11:58] LABS: CARBON DIOXIDE 27 mEq/L (21-32); CHLORIDE 105 mEq/L (98-107)
[2016-10-30] MEDS ORDERED: ENOXAPARIN 100MG/ML SYR SUBCUT SCH (12:00)
[2016-10-30 12:06] LABS: TOTAL IRON BINDING CAPACITY 232 ug/dL (250-450)
[2016-10-30 12:32] LABS: VITAMIN B12 SERUM 336 pg/mL (211-911)
[2016-10-30] MEDS ORDERED: BUDESONIDE 0.5MG/2ML NEB HHN SCH (14:30)
[2016-10-30] MEDS: METHYLPREDNISOLONE SOD SUCC 40 MG/ML VIAL IV SCH ×2 (14:41→21:48)
[2016-10-30] MEDS: IPRATROPIUM/ALBUTEROL 0.5-3(2.5)MG/3ML NEB HHN SCH ×2 (15:05→21:10)
[2016-10-30] MEDS: TRAZODONE HCL 100MG TABLET PO SCH (21:48)
[2016-10-30] MEDS: QUETIAPINE FUMARATE 100MG TABLET PO SCH (21:48)
[2016-10-31] VITALS (12 sets, daily range): BP systolic 102–128; BP diastolic 55–83
[2016-10-31] MEDS: HYDROCODONE/ACETAMINOPHEN 5/325MG TABLET PO PRN ×3 (00:48→15:37)
[2016-10-31] MEDS: IPRATROPIUM/ALBUTEROL 0.5-3(2.5)MG/3ML NEB HHN SCH ×6 (01:12→19:46)
[2016-10-31] MEDS ORDERED: HEPARIN 5000 UNITS/ML VIAL IV NR (06:00)
[2016-10-31] MEDS ORDERED: HEPARIN BOLUS PRN aPTT <36 IV (06:00)
[2016-10-31] MEDS ORDERED: HEPARIN BOLUS PRN aPTT 37-44 IV (06:00)
[2016-10-31] MEDS ORDERED: HEPARIN 25,000 UNITS PREMIX 500 ML IV SCH (06:00)
[2016-10-31] MEDS: METHYLPREDNISOLONE SOD SUCC 40 MG/ML VIAL IV SCH ×2 (06:02→17:27)
[2016-10-31] MEDS: HEPARIN 25,000 UNITS PREMIX 500 ML IV SCH (06:15)
[2016-10-31] MEDS: BLOOD SUGAR DIAGNOSTIC STRIP TEST SCH ×4 (06:38→21:32)
[2016-10-31] MEDS: INSULIN LISPRO 100 UNITS/ML SUBCUT SCH ×4 (07:20→21:34)
[2016-10-31 07:42] LABS: BASOPHILS % 0.1 % (0.0-2.0); HEMATOCRIT. 32.5 % (36.0-48.0); LYMPHOCYTES % 11.7 % (20.0-50.0); MEAN CORPUSCULAR HEMOGLOBIN 26.4 pg (28.0-32.0); MEAN CORPUSCULAR VOLUME 78.1 fL (81.0-99.0); MEAN PLATELET VOLUME 8.9 fl (7.4-10.4); MONOCYTES % 1.2 % (2.0-8.0); PLATELET 284 x1000/uL (130-400); RED BLOOD CELL COUNT 4.16 mill/uL (4.2-5.4); RED CELL DISTRIBUTION WIDTH 15.1 % (11.6-14.6)
[2016-10-31 08:05] LABS: CARBON DIOXIDE 25 mEq/L (21-32); CREATINE KINASE 118 IU/L (26-192); PHOSPHORUS 2.6 mg/dL (2.5-4.9)
[2016-10-31 08:08] LABS: CREATINE KINASE MB FRACTION 1.3 ng/mL (0.5-3.6); TROPONIN I 0.06 ng/mL (0.00-0.04)
[2016-10-31 08:41] LABS: CHLORIDE 101 mEq/L (98-107)
[2016-10-31] MEDS: ASPIRIN 81MG EC TABLET PO SCH (08:48)
[2016-10-31] MEDS ORDERED: FUROSEMIDE 40MG/4ML VIAL IV SCH (09:00)
[2016-10-31] MEDS: NITROGLYCERIN OINT 1GM/INCH UDPKT TD SCH ×2 (12:39→17:29)
[2016-10-31] MEDS: TRAZODONE HCL 100MG TABLET PO SCH (21:31)
[2016-10-31] MEDS: QUETIAPINE FUMARATE 100MG TABLET PO SCH (21:32)
[2016-11-01] VITALS (16 sets, daily range): BP systolic 101–151; BP diastolic 47–82
[2016-11-01] MEDS: NITROGLYCERIN OINT 1GM/INCH UDPKT TD SCH ×4 (00:07→18:00)
[2016-11-01] MEDS: IPRATROPIUM/ALBUTEROL 0.5-3(2.5)MG/3ML NEB HHN SCH ×6 (00:08→21:31)
[2016-11-01 03:33] LABS: BASOPHILS % 0.1 % (0.0-2.0); HEMATOCRIT. 30.3 % (36.0-48.0); HEMOGLOBIN. 10.1 g/dL (12.0-16.0); MEAN CORPUSCULAR VOLUME 78.3 fL (81.0-99.0); MEAN PLATELET VOLUME 8.7 fl (7.4-10.4); MONOCYTES % 4.6 % (2.0-8.0); NEUTROPHILS % 85.3 % (40.0-76.0); PLATELET 288 x1000/uL (130-400); RED BLOOD CELL COUNT 3.87 mill/uL (4.2-5.4); RED CELL DISTRIBUTION WIDTH 15.4 % (11.6-14.6)
[2016-11-01 03:43] LABS: PHOSPHORUS 3.5 mg/dL (2.5-4.9); TROPONIN I 0.04 ng/mL (0.00-0.04)
[2016-11-01] MEDS: HEPARIN 25,000 UNITS PREMIX 500 ML IV SCH ×2 (04:12→22:22)
[2016-11-01] MEDS: METHYLPREDNISOLONE SOD SUCC 40 MG/ML VIAL IV SCH ×2 (06:07→17:56)
[2016-11-01] MEDS: BLOOD SUGAR DIAGNOSTIC STRIP TEST SCH ×4 (06:47→20:37)
[2016-11-01 07:12] LABS: ALBUMIN 3.3 g/dL (2.9-4.4); ALPHA-1-GLOBULIN 0.2 g/dL (0.0-0.4); ALPHA-2-GLOBULIN 0.7 g/dL (0.4-1.0); GAMMA GLOBULINS 1.3 g/dL (0.4-1.8); GLOBULIN TOTAL 3.3 g/dL (2.2-3.9); M-SPIKE Not Observed g/dL (Not Observed); TOTAL PROTEIN SERUM 6.6 g/dL (6.0-8.5)
[2016-11-01] MEDS: INSULIN LISPRO 100 UNITS/ML SUBCUT SCH ×4 (07:20→21:30)
[2016-11-01] MEDS: ASPIRIN 81MG EC TABLET PO SCH (08:03)
[2016-11-01] MEDS: HYDROCODONE/ACETAMINOPHEN 5/325MG TABLET PO PRN (08:08)
[2016-11-01] MEDS ORDERED: METHYLPREDNISOLONE SOD SUCC 40 MG/ML VIAL IV SCH (14:00)
[2016-11-01] MEDS ORDERED: DIPHENHYDRAMINE 50MG/ML VIAL IV SCH (14:00)
[2016-11-01] MEDS ORDERED: FAMOTIDINE 20MG/2ML VIAL IV SCH (14:00)
[2016-11-01] MEDS ORDERED: IOHEXOL-350 100 ML BOTTLE ONE (14:26)
[2016-11-01] MEDS ORDERED: SODIUM CHLORIDE 0.9% 10ML VIAL ONE (14:26)
[2016-11-01] MEDS: MORPHINE SULFATE 2 MG/ML CPJ (NOT FOR IM USE) IV PRN ×2 (18:07→22:16)
[2016-11-01] MEDS: DOCUSATE SODIUM 100MG CAPSULE PO SCH (20:34)
[2016-11-01] MEDS: TRAZODONE HCL 100MG TABLET PO SCH (20:35)
[2016-11-01] MEDS: QUETIAPINE FUMARATE 100MG TABLET PO SCH (20:37)
[2016-11-02] VITALS (13 sets, daily range): BP systolic 105–145; BP diastolic 47–93
[2016-11-02] MEDS: IPRATROPIUM/ALBUTEROL 0.5-3(2.5)MG/3ML NEB HHN SCH ×6 (00:53→20:27)
[2016-11-02] MEDS: NITROGLYCERIN OINT 1GM/INCH UDPKT TD SCH ×4 (01:20→17:11)
[2016-11-02 05:50] LABS: INR 1.1; PARTIAL THROMBOPLASTIN TIME 50.8 sec (23.4-31.0); PROTHROMBIN TIME 11.2 sec (9.4-11.6)
[2016-11-02 06:13] LABS: BASOPHILS % 0.1 % (0.0-2.0); HEMATOCRIT. 28.5 % (36.0-48.0); HEMOGLOBIN. 9.5 g/dL (12.0-16.0); LYMPHOCYTES % 13.3 % (20.0-50.0); MEAN CORPUSCULAR VOLUME 78.2 fL (81.0-99.0); MEAN PLATELET VOLUME 8.9 fl (7.4-10.4); MONOCYTES % 4.7 % (2.0-8.0); NEUTROPHILS % 81.9 % (40.0-76.0); PLATELET 294 x1000/uL (130-400); RED BLOOD CELL COUNT 3.64 mill/uL (4.2-5.4); RED CELL DISTRIBUTION WIDTH 15.6 % (11.6-14.6)
[2016-11-02] MEDS: METHYLPREDNISOLONE SOD SUCC 40 MG/ML VIAL IV SCH (06:44)
[2016-11-02] MEDS: MORPHINE SULFATE 2 MG/ML CPJ (NOT FOR IM USE) IV PRN ×2 (06:44→15:19)
[2016-11-02] MEDS: BLOOD SUGAR DIAGNOSTIC STRIP TEST SCH ×4 (06:49→20:35)
[2016-11-02 07:24] LABS: PHOSPHORUS 3.7 mg/dL (2.5-4.9); TROPONIN I 0.02 ng/mL (0.00-0.04)
[2016-11-02] MEDS: INSULIN LISPRO 100 UNITS/ML SUBCUT SCH ×4 (07:54→20:37)
[2016-11-02] MEDS: ASPIRIN 81MG EC TABLET PO SCH (08:11)
[2016-11-02] MEDS: DOCUSATE SODIUM 100MG CAPSULE PO SCH ×2 (08:11→20:38)
[2016-11-02] MEDS: ENOXAPARIN 150MG/ML SYR SUBCUT SCH (11:53)
[2016-11-02] MEDS: MAGNESIUM/ALUMINUM HYDROXIDE/SIMETHICONE 30ML UDC PO PRN (15:25)
[2016-11-02] MEDS: QUETIAPINE FUMARATE 100MG TABLET PO SCH (20:37)
[2016-11-02] MEDS: TRAZODONE HCL 100MG TABLET PO SCH (20:37)
[2016-11-02] MEDS: MORPHINE SULFATE 4 MG/ML CPJ (NOT FOR IM USE) IV PRN (20:40)
[2016-11-03] VITALS (13 sets, daily range): BP systolic 106–151; BP diastolic 56–87
[2016-11-03] MEDS: NITROGLYCERIN OINT 1GM/INCH UDPKT TD SCH ×3 (00:22→12:00)
[2016-11-03] MEDS: ENOXAPARIN 150MG/ML SYR SUBCUT SCH ×2 (00:22→12:20)
[2016-11-03] MEDS: IPRATROPIUM/ALBUTEROL 0.5-3(2.5)MG/3ML NEB HHN SCH ×4 (00:39→12:10)
[2016-11-03] MEDS: MORPHINE SULFATE 4 MG/ML CPJ (NOT FOR IM USE) IV PRN (04:32)
[2016-11-03] MEDS: MAGNESIUM/ALUMINUM HYDROXIDE/SIMETHICONE 30ML UDC PO PRN (05:14)
[2016-11-03] MEDS: BLOOD SUGAR DIAGNOSTIC STRIP TEST SCH ×2 (06:15→12:03)
[2016-11-03] MEDS: INSULIN LISPRO 100 UNITS/ML SUBCUT SCH ×2 (07:20→12:23)
[2016-11-03 07:33] LABS: BASOPHILS % 0.2 % (0.0-2.0); EOSINOPHILS % 0.3 % (0.0-5.0); HEMATOCRIT. 28.7 % (36.0-48.0); HEMOGLOBIN. 9.5 g/dL (12.0-16.0); LYMPHOCYTES % 43.3 % (20.0-50.0); MEAN CORPUSCULAR HEMOGLOBIN 26.2 pg (28.0-32.0); MEAN PLATELET VOLUME 9.1 fl (7.4-10.4); MONOCYTES % 6.3 % (2.0-8.0); NEUTROPHILS % 49.9 % (40.0-76.0); PLATELET 288 x1000/uL (130-400); RED BLOOD CELL COUNT 3.64 mill/uL (4.2-5.4); RED CELL DISTRIBUTION WIDTH 15.2 % (11.6-14.6)
[2016-11-03] MEDS: DOCUSATE SODIUM 100MG CAPSULE PO SCH (08:53)
[2016-11-03] MEDS: ASPIRIN 81MG EC TABLET PO SCH (08:53)
[2016-11-03] MEDS ORDERED: PREDNISONE 20MG TABLET PO SCH (09:00)
[2016-11-03] MEDS ORDERED: LACTULOSE 20G/30ML UDC PO PRN (10:15)
[2016-11-03] MEDS ORDERED: APIX5TAB PO (10:24)
[2016-11-03] MEDS ORDERED: AMLO2.5T45 PO (10:24)
== END 2016-11-03 16:15 | disposition home or self-care (01) | DRG 134 ==
LOC: ER 11:45 → ENRESERV 13:20 → 5WST 14:34 → 3WST 10-30 14:26
PROVIDERS: ADMIT Internal Medicine; ATTEND Internal Medicine
PROC: 3E013GC Introduction of Other Therapeutic Substance into Subcutaneous Tissue, Percutaneous Approach (ICD-10-PCS; principal; 2016-10-29)
DX: I26.99 Other pulmonary embolism without acute cor pulmonale (principal); J96.01 Acute respiratory failure with hypoxia; I50.33 Acute on chronic diastolic (congestive) heart failure; N17.9 Acute kidney failure, unspecified; E87.3 Alkalosis; I95.9 Hypotension, unspecified; E11.22 Type 2 diabetes mellitus with diabetic chronic kidney disease; I31.3 Pericardial effusion (noninflammatory); I13.0 Hypertensive heart and chronic kidney disease with heart failure and stage 1 through stage 4 chronic kidney disease, or unspecified chronic kidney disease; I27.2 Other secondary pulmonary hypertension; I27.81 Cor pulmonale (chronic); J45.901 Unspecified asthma with (acute) exacerbation; E87.70 Fluid overload, unspecified; E66.01 Morbid (severe) obesity due to excess calories; F20.9 Schizophrenia, unspecified; D63.8 Anemia in other chronic diseases classified elsewhere; F32.9 Major depressive disorder, single episode, unspecified; F41.9 Anxiety disorder, unspecified; K21.9 Gastro-esophageal reflux disease without esophagitis; K76.0 Fatty (change of) liver, not elsewhere classified; N18.9 Chronic kidney disease, unspecified; Z91.041 Radiographic dye allergy status; Z82.49 Family history of ischemic heart disease and other diseases of the circulatory system; Z90.710 Acquired absence of both cervix and uterus; Z79.82 Long term (current) use of aspirin; Z79.84 Long term (current) use of oral hypoglycemic drugs; Z79.899 Other long term (current) drug therapy; Z68.43 Body mass index [BMI] 50.0-59.9, adult
CPT/HCPCS: 36415; 36600; 51702; 71010; 71250; 71275; 76700; 78580; 78582; 80048; 80053; 80061; 80305; 81001; 82150; 82375; 82550; 82553; 82607; 82805; 82962; 83540; 83550; 83690; 83735; 83880; 84100; 84155; 84165; 84443; 84484; 85025; 85044; 85379; 85610; 85730; 87040; 93005; 93306; 93970; 94640; 96374; 96375; 97162; 99291; A4216; A9558; J1200; J1644; J1650; J1815; J1940; J2270; J2920; J3490; J7512; J7620; J7626; Q9967

== ENCOUNTER 2016-12-26 05:54 | Emergency (ER) | payer OTHER ==
[~2016-12-26] VITALS: Ht 167.6 cm; Wt 81.0 kg
[~2016-12-26 05:54] MED LIST changes: +AMLO2.5T45 PO; -AMOX500T2 PO; +APIX5TAB PO; -CLAR500T PO; -FURO20TA4 PO; -LISI1TAB13 PO; -POTA10TA11 PO; -SPIR25TA4 PO
[2016-12-26 06:48] LABS: BASOPHILS % 0.9 % (0.0-2.0); HEMATOCRIT. 32.6 % (36.0-48.0); HEMOGLOBIN. 11.3 g/dL (12.0-16.0); LYMPHOCYTES % 33.7 % (20.0-50.0); MEAN CORPUSCULAR HEMOGLOBIN 27.5 pg (28.0-32.0); MEAN CORPUSCULAR VOLUME 79.4 fL (81.0-99.0); MEAN PLATELET VOLUME 8.1 fl (7.4-10.4); MONOCYTES % 4.3 % (2.0-8.0); NEUTROPHILS % 49.1 % (40.0-76.0); PLATELET 308 x1000/uL (130-400); RED BLOOD CELL COUNT 4.11 mill/uL (4.2-5.4); RED CELL DISTRIBUTION WIDTH 15.2 % (11.6-14.6)
[2016-12-26 06:49] LABS: PROTHROMBIN TIME 10.9 sec (9.4-11.6)
[2016-12-26 06:58] LABS: CARBON DIOXIDE 31 mEq/L (21-32); CHLORIDE 104 mEq/L (98-107)
[2016-12-26 07:04] LABS: TROPONIN I < 0.02 ng/mL (0.00-0.04)
[2016-12-26] MEDS ORDERED: VISCOUS LIDOCAINE 2% 15 ML UDC PO STA (07:35)
[2016-12-26] MEDS ORDERED: MAGNESIUM/ALUMINUM HYDROXIDE/SIMETHICONE 30ML UDC PO STA (07:35)
[2016-12-26 08:12] VITALS: BP 119/69
== END 2016-12-26 08:36 | disposition left against medical advice (07) ==
LOC: ER 05:54 → EDBEDREQ 07:51 → EDBEDREQTM 07:51 → ENRESERV 08:04 → CANRESERV 08:04 → CANBEDREQ 08:34 → ER 08:36
DX: R07.89 Other chest pain (principal); E11.9 Type 2 diabetes mellitus without complications; I10 Essential (primary) hypertension; F20.9 Schizophrenia, unspecified; F41.9 Anxiety disorder, unspecified; F32.9 Major depressive disorder, single episode, unspecified; Z91.041 Radiographic dye allergy status; Z90.710 Acquired absence of both cervix and uterus
CPT/HCPCS: 36415; 71010; 80053; 83880; 84484; 85025; 85610; 93005; 99285; Z7610

== ENCOUNTER 2017-04-30 06:49 | Emergency (ER) | payer OTHER ==
[~2017-04-30] VITALS: Ht 162.6 cm; Wt 100.0 kg
[2017-04-30 09:10] LABS: PROTHROMBIN TIME 10.6 sec (9.4-11.6)
[2017-04-30 09:16] LABS: CHLORIDE 103 mEq/L (98-107)
[2017-04-30 09:21] LABS: TROPONIN I < 0.02 ng/mL (0.00-0.04)
[2017-04-30 10:23] LABS: BASOPHILS % 0.5 % (0.0-2.0); EOSINOPHILS % 10.4 % (0.0-5.0); HEMOGLOBIN. 10.7 g/dL (12.0-16.0); LYMPHOCYTES % 38.7 % (20.0-50.0); MEAN CORPUSCULAR HEMOGLOBIN 26.1 pg (28.0-32.0); MEAN CORPUSCULAR VOLUME 80.1 fL (81.0-99.0); MEAN PLATELET VOLUME 8.3 fl (7.4-10.4); MONOCYTES % 7.3 % (2.0-8.0); NEUTROPHILS % 43.1 % (40.0-76.0); PLATELET 332 x1000/uL (130-400); RED BLOOD CELL COUNT 4.12 mill/uL (4.2-5.4); RED CELL DISTRIBUTION WIDTH 14.6 % (11.6-14.6)
[2017-04-30 11:20] VITALS: BP 133/64
== END 2017-04-30 11:35 | disposition home or self-care (01) ==
LOC: ER 06:56
DX: R07.89 Other chest pain (principal); E11.65 Type 2 diabetes mellitus with hyperglycemia; I10 Essential (primary) hypertension; J45.909 Unspecified asthma, uncomplicated; K21.9 Gastro-esophageal reflux disease without esophagitis; D50.9 Iron deficiency anemia, unspecified; F41.9 Anxiety disorder, unspecified; E88.09 Other disorders of plasma-protein metabolism, not elsewhere classified; Z86.711 Personal history of pulmonary embolism; Z79.01 Long term (current) use of anticoagulants; Z91.041 Radiographic dye allergy status; Z79.84 Long term (current) use of oral hypoglycemic drugs; Z79.82 Long term (current) use of aspirin; Z87.828 Personal history of other (healed) physical injury and trauma
CPT/HCPCS: 36415; 71045; 80053; 83880; 84484; 85025; 85610; 93005; 99285

== ENCOUNTER 2017-09-01 23:38 | Emergency (ER) | payer OTHER ==
[~2017-09-01] VITALS: Ht 162.6 cm; Wt 145.0 kg
[2017-09-01 23:44] VITALS: BP 119/59
== END 2017-09-02 07:59 | disposition left against medical advice (07) ==
LOC: ER 09-02 04:04
DX: R42 Dizziness and giddiness (principal); R06.02 Shortness of breath; Z53.21 Procedure and treatment not carried out due to patient leaving prior to being seen by health care provider

== ENCOUNTER 2017-10-22 05:49 | Emergency (ER) | payer OTHER ==
[~2017-10-22] VITALS: Ht 162.6 cm; Wt 131.0 kg
[~2017-10-22 05:49] MED LIST changes: -TRAZ-132 PO; +TRAZ-213 PO
[2017-10-22] MEDS ORDERED: METHYLPREDNISOLONE SOD SUCC 125 MG/2 ML VIAL IV STA (06:28)
[2017-10-22] MEDS ORDERED: IPRATROPIUM/ALBUTEROL 0.5-3(2.5)MG/3ML NEB HHN ONE (06:30)
[2017-10-22 07:11] LABS: BASOPHILS % 0.5 % (0.0-2.0); EOSINOPHILS % 4.9 % (0.0-5.0); HEMATOCRIT. 32.1 % (36.0-48.0); HEMOGLOBIN. 10.9 g/dL (12.0-16.0); LYMPHOCYTES % 44.2 % (20.0-50.0); MEAN CORPUSCULAR HEMOGLOBIN 27.1 pg (28.0-32.0); MEAN CORPUSCULAR VOLUME 79.5 fL (81.0-99.0); MEAN PLATELET VOLUME 8.1 fl (7.4-10.4); MONOCYTES % 6.7 % (2.0-8.0); NEUTROPHILS % 43.7 % (40.0-76.0); PLATELET 333 x1000/uL (130-400); RED BLOOD CELL COUNT 4.03 mill/uL (4.2-5.4)
[2017-10-22 07:22] LABS: CHLORIDE 102 mEq/L (98-107); PARTIAL THROMBOPLASTIN TIME 27.3 sec (23.4-31.0); PROTHROMBIN TIME 10.1 sec (9.1-11.1)
[2017-10-22 08:23] VITALS: BP 112/56
== END 2017-10-22 08:25 | disposition home or self-care (01) ==
LOC: ER 05:49
DX: J45.901 Unspecified asthma with (acute) exacerbation (principal); R79.89 Other specified abnormal findings of blood chemistry
CPT/HCPCS: 36415; 71045; 80053; 83880; 84484; 85025; 85610; 85730; 93005; 94640; 96374; 99285; J2930; J7620; Z7610

== ENCOUNTER 2018-04-26 05:26 | Emergency (ER) | payer OTHER ==
[~2018-04-26] VITALS: Ht 170.2 cm; Wt 148.0 kg
[2018-04-26 06:44] LABS: BASOPHILS % 0.8 % (0.0-2.0); EOSINOPHILS % 7.9 % (0.0-5.0); HEMATOCRIT. 31.4 % (36.0-48.0); HEMOGLOBIN. 10.5 g/dL (12.0-16.0); LYMPHOCYTES % 31.4 % (20.0-50.0); MEAN CORPUSCULAR HEMOGLOBIN 26.7 pg (28.0-32.0); MEAN CORPUSCULAR VOLUME 79.6 fL (81.0-99.0); MEAN PLATELET VOLUME 8.2 fl (7.4-10.4); MONOCYTES % 7.6 % (2.0-8.0); NEUTROPHILS % 52.3 % (40.0-76.0); PLATELET 328 x1000/uL (130-400); RED BLOOD CELL COUNT 3.95 mill/uL (4.2-5.4); RED CELL DISTRIBUTION WIDTH 14.5 % (11.6-14.6)
[2018-04-26 06:49] LABS: CHLORIDE 104 mEq/L (98-107)
[2018-04-26] MEDS ORDERED: ONDANSETRON HCL 4MG/2ML INJ IV ONE (07:45)
[2018-04-26] MEDS ORDERED: MAGNESIUM/ALUMINUM HYDROXIDE/SIMETHICONE 30ML UDC PO ONE (07:45)
[2018-04-26 09:20] VITALS: BP 107/70
== END 2018-04-26 09:41 | disposition left against medical advice (07) ==
LOC: ER 05:26 → CANBEDREQ 20:11
DX: R06.00 Dyspnea, unspecified (principal); R07.2 Precordial pain; J45.909 Unspecified asthma, uncomplicated; E11.9 Type 2 diabetes mellitus without complications; I10 Essential (primary) hypertension; Z86.711 Personal history of pulmonary embolism; Z91.041 Radiographic dye allergy status; Z79.82 Long term (current) use of aspirin; Z79.84 Long term (current) use of oral hypoglycemic drugs; Z79.899 Other long term (current) drug therapy
CPT/HCPCS: 36415; 71045; 80053; 83880; 84484; 85025; 93005; 96374; 99284; J2405; Z7610

== ENCOUNTER 2018-11-22 05:49 | Emergency (ER) | payer OTHER ==
[~2018-11-22] VITALS: Ht 175.3 cm; Wt 147.0 kg
[~2018-11-22 05:49] MED LIST changes: -ASPI-1159 PO; +ASPI-1393 PO
[2018-11-22 06:50] LABS: BASOPHILS % 0.7 % (0.0-2.0); EOSINOPHILS % 5.9 % (0.0-5.0); HEMATOCRIT. 32.3 % (36.0-48.0); HEMOGLOBIN. 11.1 g/dL (12.0-16.0); LYMPHOCYTES % 34.3 % (20.0-50.0); MEAN CORPUSCULAR HEMOGLOBIN 27.6 pg (28.0-32.0); MEAN CORPUSCULAR VOLUME 80.3 fL (81.0-99.0); MEAN PLATELET VOLUME 8.2 fl (7.4-10.4); MONOCYTES % 6.8 % (2.0-8.0); NEUTROPHILS % 52.3 % (40.0-76.0); PLATELET 309 x1000/uL (130-400); RED BLOOD CELL COUNT 4.03 mill/uL (4.2-5.4); RED CELL DISTRIBUTION WIDTH 14.6 % (11.6-14.6)
[2018-11-22 06:56] LABS: CHLORIDE 105 mEq/L (98-107)
[2018-11-22 10:20] VITALS: BP 121/71
== END 2018-11-22 10:45 | disposition left against medical advice (07) ==
LOC: ER 06:02
DX: R07.89 Other chest pain (principal); R11.0 Nausea; I11.0 Hypertensive heart disease with heart failure; I50.9 Heart failure, unspecified; J45.909 Unspecified asthma, uncomplicated; E11.9 Type 2 diabetes mellitus without complications; Z79.82 Long term (current) use of aspirin; Z79.899 Other long term (current) drug therapy; Z91.041 Radiographic dye allergy status
CPT/HCPCS: 36415; 71045; 83880; 84484; 93005; 99284

== ENCOUNTER 2019-03-19 23:35 | Emergency (ER) | payer MEDICAID ==
[~2019-03-19] VITALS: Ht 162.6 cm; Wt 146.0 kg
[~2019-03-19 23:35] MED LIST changes: -ASPI-1393 PO; +ASPI-1497 PO; -TRAZ-213 PO; +TRAZ-252 PO
[2019-03-20] MEDS ORDERED: IPRATROPIUM BROMIDE (0.02%) 0.5MG/2.5ML NEB HHN STA ×3 (05:41→09:15)
[2019-03-20] MEDS ORDERED: ALBUTEROL (0.083%) 2.5MG/3ML NEB HHN STA ×3 (05:41→09:15)
[2019-03-20] MEDS ORDERED: PREDNISONE 20MG TABLET PO STA (06:20)
[2019-03-20] MEDS ORDERED: ALBUTEROL (0.5%) 2.5MG/0.5ML NEB HHN ONE (09:18)
[2019-03-20] MEDS ORDERED: IPRATROPIUM BROMIDE (0.02%) 0.5MG/2.5ML NEB ONE (09:18)
[2019-03-20] MEDS ORDERED: ALBUTEROL (0.083%) 2.5MG/3ML NEB ONE (09:22)
[2019-03-20 10:04] VITALS: BP 132/57
== END 2019-03-20 10:10 | disposition home or self-care (01) ==
LOC: ER 23:35
DX: J45.901 Unspecified asthma with (acute) exacerbation (principal); J02.9 Acute pharyngitis, unspecified; E11.9 Type 2 diabetes mellitus without complications; I10 Essential (primary) hypertension; F32.9 Major depressive disorder, single episode, unspecified; Z79.84 Long term (current) use of oral hypoglycemic drugs; Z90.710 Acquired absence of both cervix and uterus; Z91.041 Radiographic dye allergy status; Z79.82 Long term (current) use of aspirin
CPT/HCPCS: 71045; 94640; 99284; J7512; J7611; Z7610

== ENCOUNTER 2019-09-25 04:28 | Inpatient (IN) | payer MEDICAID, OTHER ==
[~2019-09-25] VITALS: Ht 165.1 cm; Wt 73.5 kg
[2019-09-25] MEDS ORDERED: SODIUM CHLORIDE 0.9% 1,000 ML IV ONE ×2 (06:28→11:53)
[2019-09-25] MEDS ORDERED: ONDANSETRON HCL 4MG/2ML INJ IV STA (06:28)
[2019-09-25] MEDS ORDERED: MORPHINE SULFATE 4 MG/ML CPJ (NOT FOR IM USE) IV STA (06:28)
[2019-09-25] MEDS ORDERED: PIPERACILLIN/TAZ 3.375G PREMIX 50 ML IV ONE (06:45)
[2019-09-25] MEDS ORDERED: VANCOMYCIN 1 G PREMIX 200 ML IV SCH ×2 (06:45→16:00)
[2019-09-25] MEDS ORDERED: ASPIRIN 81MG EC TABLET PO ONE (06:45)
[2019-09-25 07:25] LABS: BASOPHILS % 0.5 % (0.0-2.0); EOSINOPHILS % 6.5 % (0.0-5.0); HEMATOCRIT. 30.7 % (36.0-48.0); HEMOGLOBIN. 10.3 g/dL (12.0-16.0); LYMPHOCYTES % 31.8 % (20.0-50.0); MEAN CORPUSCULAR HEMOGLOBIN 26.7 pg (28.0-32.0); MEAN CORPUSCULAR VOLUME 79.7 fL (81.0-99.0); MEAN PLATELET VOLUME 8.3 fl (7.4-10.4); MONOCYTES % 7.3 % (2.0-8.0); NEUTROPHILS % 53.9 % (40.0-76.0); PLATELET 291 x1000/uL (130-400); RED BLOOD CELL COUNT 3.85 mill/uL (4.2-5.4)
[2019-09-25 07:30] LABS: CHLORIDE 104 mEq/L (98-107)
[2019-09-25 07:36] LABS: CLARITY URINE CLEAR (CLEAR); COLOR URINE YELLOW (YELLOW); KETONES URINE NEGATIVE (NEGATIVE); LEUKOCYTE ESTERASE URINE NEGATIVE (NEGATIVE); NITRITE URINE NEGATIVE (NEGATIVE); OCCULT BLOOD URINE NEGATIVE (NEGATIVE); PROTEIN URINE NEGATIVE (NEGATIVE); SPECIFIC GRAVITY URINE 1.015 (1.005-1.030); UROBILINOGEN URINE 0.2 E.U./dL (0.2-1.0)
[2019-09-25 07:57] LABS: PARTIAL THROMBOPLASTIN TIME 27.9 sec (23.4-31.0); PROTHROMBIN TIME 10.3 sec (9.6-11.0)
[2019-09-25] MEDS ORDERED: ENOXAPARIN 150MG/ML SYR SUBCUT ONE (08:00)
[2019-09-25] MEDS ORDERED: PIPERACILLIN/TAZ 3.375G PREMIX 50 ML IV SCH (11:30)
[2019-09-25] MEDS ORDERED: CLONIDINE 0.1MG TABLET PO PRN (11:30)
[2019-09-25] MEDS ORDERED: ACETAMINOPHEN 325MG TABLET PO PRN (11:30)
[2019-09-25] MEDS ORDERED: DIPHENHYDRAMINE 50MG/ML VIAL IV PRN (11:30)
[2019-09-25] MEDS ORDERED: ONDANSETRON HCL 4MG/2ML INJ IV PRN (11:30)
[2019-09-25 12:00] VITALS: BP 127/72
[2019-09-25] MEDS ORDERED: VANCOMYCIN 1 G PREMIX 200 ML IV ONE (12:00)
[2019-09-25 13:00] VITALS: BP 109/53
[2019-09-25] MEDS ORDERED: PIPERACILLIN/TAZOBACTAM 3.375 G in DEXT 5% WATER 100 ML IV SCH ×4 (14:00)
[2019-09-25] MEDS: SERTRALINE HCL 25MG TABLET PO SCH (15:46)
[2019-09-25] MEDS: CALCIUM CARBONATE/VITAMIN D3 500MG TABLET PO SCH (15:47)
[2019-09-25] MEDS: FERROUS SULFATE 325MG TABLET PO SCH (15:47)
[2019-09-25] MEDS: PANTOPRAZOLE 40MG DR TABLET PO SCH (15:47)
[2019-09-25] MEDS: FUROSEMIDE 40MG/4ML VIAL IVP SCH (15:54)
[2019-09-25] MEDS: CLOTRIMAZOLE 1% CREAM 30GM TOP SCH ×2 (15:59→22:23)
[2019-09-25 16:00] VITALS: BP 127/72
[2019-09-25] MEDS: METFORMIN HCL 500MG TABLET PO SCH (17:16)
[2019-09-25] MEDS: APIXABAN 5 MG TABLET PO SCH (17:16)
[2019-09-25 20:00] VITALS: BP 156/77
[2019-09-25] MEDS: TRAZODONE HCL 50MG TABLET PO SCH (20:59)
[2019-09-25] MEDS: QUETIAPINE FUMARATE 50MG TABLET PO SCH (21:00)
[2019-09-25] MEDS ORDERED: AMOXICILLIN/POTASSIUM CLAVULANATE 875/125MG TAB PO SCH (21:00)
[2019-09-25] MEDS: AMPICILLIN SOD/SULBACTAM NA 3 G in SODIUM CHLORIDE 0.9% 100 ML IV SCH (21:52)
[2019-09-26] VITALS: BP 102/51
[2019-09-26] MEDS ORDERED: VANCOMYCIN 750 MG PREMIX 150 ML IV SCH
[2019-09-26 04:00] VITALS: BP 134/71
[2019-09-26] MEDS: AMPICILLIN SOD/SULBACTAM NA 3 G in SODIUM CHLORIDE 0.9% 100 ML IV SCH ×4 (04:21→21:17)
[2019-09-26] MEDS: MORPHINE SULFATE 2 MG/ML CPJ (NOT FOR IM USE) IV PRN ×2 (05:32→18:31)
[2019-09-26 08:00] VITALS: BP 122/64
[2019-09-26 08:19] LABS: CHLORIDE 104 mEq/L (98-107)
[2019-09-26 08:27] LABS: HDL CHOLESTEROL 78 mg/dL (40-59); LDL CHOLESTEROL 78 mg/dL (5-100)
[2019-09-26] MEDS: PANTOPRAZOLE 40MG DR TABLET PO SCH (08:37)
[2019-09-26] MEDS: CALCIUM CARBONATE/VITAMIN D3 500MG TABLET PO SCH (08:37)
[2019-09-26] MEDS: SERTRALINE HCL 25MG TABLET PO SCH (08:37)
[2019-09-26] MEDS: FUROSEMIDE 40MG/4ML VIAL IVP SCH (08:37)
[2019-09-26] MEDS: FERROUS SULFATE 325MG TABLET PO SCH (08:37)
[2019-09-26] MEDS: AMLODIPINE 2.5MG TABLET PO SCH (08:41)
[2019-09-26] MEDS: ASPIRIN 81MG EC TABLET PO SCH (08:46)
[2019-09-26] MEDS: APIXABAN 5 MG TABLET PO SCH ×2 (08:46→17:21)
[2019-09-26] MEDS: CLOTRIMAZOLE 1% CREAM 30GM TOP SCH ×2 (08:46→21:17)
[2019-09-26 09:00] LABS: BASOPHILS % 0.4 % (0.0-2.0); EOSINOPHILS % 7.1 % (0.0-5.0); HEMATOCRIT. 31.4 % (36.0-48.0); HEMOGLOBIN. 10.7 g/dL (12.0-16.0); LYMPHOCYTES % 33.2 % (20.0-50.0); MEAN CORPUSCULAR HEMOGLOBIN 27.1 pg (28.0-32.0); MEAN CORPUSCULAR VOLUME 79.3 fL (81.0-99.0); MEAN PLATELET VOLUME 8.5 fl (7.4-10.4); MONOCYTES % 5.6 % (2.0-8.0); NEUTROPHILS % 53.7 % (40.0-76.0); PLATELET 315 x1000/uL (130-400); RED BLOOD CELL COUNT 3.96 mill/uL (4.2-5.4)
[2019-09-26] MEDS ORDERED: QUETIAPINE FUMARATE 25MG TABLET PO SCH ×2 (09:00)
[2019-09-26] MEDS ORDERED: REGADENOSON 0.4 MG/5 ML IV NR (09:00)
[2019-09-26] MEDS: METOPROLOL TARTRATE 25MG TABLET PO SCH ×3 (10:30→21:18)
[2019-09-26] MEDS ORDERED: NITROGLYCERIN 0.4MG TABLET SL SL PRN (10:30)
[2019-09-26 11:53] VITALS: BP 103/56
[2019-09-26] MEDS ORDERED: REGADENOSON 0.4 MG/5 ML IV ONE (14:24)
[2019-09-26 16:00] VITALS: BP 109/71
[2019-09-26] MEDS ORDERED: HYDROXYCHLOROQUINE SULFATE 200MG TABLET PO SCH (16:00)
[2019-09-26] MEDS: ALBUTEROL (0.083%) 2.5MG/3ML NEB HHN SCH ×2 (16:05→20:10)
[2019-09-26] MEDS: METFORMIN HCL 500MG TABLET PO SCH (17:19)
[2019-09-26] MEDS: HYDROXYCHLOROQUINE SULFATE 200MG TABLET PO SCH (17:21)
[2019-09-26 20:00] VITALS: BP 121/60
[2019-09-26] MEDS ORDERED: DEXTROSE 50% WATER 50ML SYRINGE IV PRN (20:45)
[2019-09-26] MEDS: INSULIN LISPRO 100 UNITS/ML SUBCUT SCH (21:00)
[2019-09-26] MEDS: TRAZODONE HCL 50MG TABLET PO SCH (21:17)
[2019-09-26] MEDS: QUETIAPINE FUMARATE 50MG TABLET PO SCH (21:17)
[2019-09-26] MEDS: BLOOD SUGAR DIAGNOSTIC STRIP TEST SCH (21:18)
[2019-09-27] VITALS: BP 111/75
[2019-09-27] MEDS: ALBUTEROL (0.083%) 2.5MG/3ML NEB HHN SCH ×2 (02:29→09:50)
[2019-09-27 04:00] VITALS: BP 142/68
[2019-09-27] MEDS: AMPICILLIN SOD/SULBACTAM NA 3 G in SODIUM CHLORIDE 0.9% 100 ML IV SCH ×2 (04:01→09:03)
[2019-09-27] MEDS: BLOOD SUGAR DIAGNOSTIC STRIP TEST SCH ×2 (06:04→12:10)
[2019-09-27] MEDS: INSULIN LISPRO 100 UNITS/ML SUBCUT SCH ×2 (06:04→12:34)
[2019-09-27 06:26] LABS: BASOPHILS % 0.5 % (0.0-2.0); EOSINOPHILS % 7.8 % (0.0-5.0); HEMATOCRIT. 28.9 % (36.0-48.0); HEMOGLOBIN. 9.8 g/dL (12.0-16.0); LYMPHOCYTES % 32.1 % (20.0-50.0); MEAN CORPUSCULAR HEMOGLOBIN 26.8 pg (28.0-32.0); MEAN CORPUSCULAR VOLUME 79.4 fL (81.0-99.0); MEAN PLATELET VOLUME 8.4 fl (7.4-10.4); MONOCYTES % 8.9 % (2.0-8.0); NEUTROPHILS % 50.7 % (40.0-76.0); PLATELET 282 x1000/uL (130-400); RED BLOOD CELL COUNT 3.64 mill/uL (4.2-5.4); RED CELL DISTRIBUTION WIDTH 14.8 % (11.6-14.6)
[2019-09-27 06:30] LABS: CHLORIDE 102 mEq/L (98-107)
[2019-09-27] MEDS ORDERED: HYDROXYCHLOROQUINE SULFATE 200MG TABLET PO SCH (09:00)
[2019-09-27] MEDS ORDERED: FAMOTIDINE 20MG TABLET PO SCH (09:00)
[2019-09-27] MEDS: CALCIUM CARBONATE/VITAMIN D3 500MG TABLET PO SCH (09:01)
[2019-09-27] MEDS: SERTRALINE HCL 25MG TABLET PO SCH (09:01)
[2019-09-27] MEDS: HYDROXYCHLOROQUINE SULFATE 200MG TABLET PO SCH (09:01)
[2019-09-27] MEDS: ASPIRIN 81MG EC TABLET PO SCH (09:01)
[2019-09-27] MEDS: FERROUS SULFATE 325MG TABLET PO SCH (09:01)
[2019-09-27] MEDS: APIXABAN 5 MG TABLET PO SCH (09:02)
[2019-09-27] MEDS: METOPROLOL TARTRATE 25MG TABLET PO SCH (09:02)
[2019-09-27] MEDS: FUROSEMIDE 40MG/4ML VIAL IVP SCH (09:02)
[2019-09-27] MEDS: AMLODIPINE 2.5MG TABLET PO SCH (09:02)
[2019-09-27] MEDS: CLOTRIMAZOLE 1% CREAM 30GM TOP SCH (09:03)
[2019-09-27 12:56] VITALS: BP 108/57
== END 2019-09-27 13:30 | disposition home or self-care (01) | DRG 383 ==
LOC: ER 04:28 → 8WST 10:12 → EDBEDREQ 10:16 → EDBEDREQTM 10:17 → ENRESERV 11:47 → 8WST 14:23
PROVIDERS: ADMIT Internal Medicine; ATTEND Internal Medicine
DX: L03.116 Cellulitis of left lower limb (principal); R07.9 Chest pain, unspecified; D50.9 Iron deficiency anemia, unspecified; E11.9 Type 2 diabetes mellitus without complications; E66.01 Morbid (severe) obesity due to excess calories; I10 Essential (primary) hypertension; M06.9 Rheumatoid arthritis, unspecified; I27.21 Secondary pulmonary arterial hypertension; F32.9 Major depressive disorder, single episode, unspecified; I27.81 Cor pulmonale (chronic); J45.909 Unspecified asthma, uncomplicated; I87.8 Other specified disorders of veins; L30.8 Other specified dermatitis; Z91.041 Radiographic dye allergy status; Z68.27 Body mass index [BMI] 27.0-27.9, adult; Z79.01 Long term (current) use of anticoagulants; Z79.82 Long term (current) use of aspirin; Z82.49 Family history of ischemic heart disease and other diseases of the circulatory system; Z86.711 Personal history of pulmonary embolism; Z86.718 Personal history of other venous thrombosis and embolism; Z90.710 Acquired absence of both cervix and uterus; Z79.84 Long term (current) use of oral hypoglycemic drugs; Z79.899 Other long term (current) drug therapy
CPT/HCPCS: 36415; 71045; 78452; 78580; 80048; 80053; 80061; 81003; 82962; 83036; 83605; 83735; 83880; 84100; 84443; 84484; 85025; 86850; 86900; 93005; 93017; 93306; 93970; 94640; 99285; A9500; J0295; J1650; J1940; J2270; J2405; J2543; J2785; J3370; J7030; J7050; J7060

== ENCOUNTER 2020-05-01 17:02 | Inpatient (IN) | payer OTHER ==
[~2020-05-01] VITALS: Ht 162.6 cm; Wt 152.4 kg
[~2020-05-01 17:02] MED LIST changes: -METF-516 PO; +METF-818 PO; -PANT40TA4 PO; +PANT40TA51 PO
[2020-05-01] MEDS ORDERED: IPRATROPIUM BROMIDE (0.02%) 0.5MG/2.5ML NEB HHN STA (17:49)
[2020-05-01] MEDS: ALBUTEROL (0.083%) 2.5MG/3ML NEB HHN SCH ×3 (17:50→18:42)
[2020-05-01 18:00] LABS: *AMPHETAMINES SCREEN URINE NEGATIVE (NEGATIVE); *BARBITURATES SCREEN URINE NEGATIVE (NEGATIVE); *BENZODIAZEPINES SCREEN URINE NEGATIVE (NEGATIVE); *COCAINE SCREEN URINE NEGATIVE (NEGATIVE); METHADONE URINE SCREEN NEGATIVE (NEGATIVE); OPIATES URINE SCREEN NEGATIVE (NEGATIVE)
[2020-05-01] MEDS ORDERED: ONDANSETRON HCL 4MG/2ML INJ IV ONE (18:00)
[2020-05-01] MEDS ORDERED: MORPHINE SULFATE 4 MG/ML CPJ (NOT FOR IM USE) IV ONE (18:00)
[2020-05-01] MEDS ORDERED: SODIUM CHLORIDE 0.9% 1,000 ML IV ONE (18:00)
[2020-05-01] MEDS ORDERED: ASPIRIN 81MG TABLET PO ONE (18:00)
[2020-05-01 18:01] LABS: CANNABINOID URINE SCREEN NEGATIVE (NEGATIVE); PHENCYCLIDINE URINE SCREEN NEGATIVE (NEGATIVE)
[2020-05-01 18:13] LABS: BASOPHILS % 0.7 % (0.0-2.0); EOSINOPHILS % 4.9 % (0.0-5.0); HEMATOCRIT. 35.1 % (36.0-48.0); HEMOGLOBIN. 11.5 g/dL (12.0-16.0); LYMPHOCYTES % 32.8 % (20.0-50.0); MEAN CORPUSCULAR HEMOGLOBIN 25.9 pg (28.0-32.0); MEAN CORPUSCULAR VOLUME 79.2 fL (81.0-99.0); MEAN PLATELET VOLUME 8.5 fl (7.4-10.4); MONOCYTES % 7.5 % (2.0-8.0); NEUTROPHILS % 54.1 % (40.0-76.0); PLATELET 341 x1000/uL (130-400); RED BLOOD CELL COUNT 4.44 mill/uL (4.2-5.4); RED CELL DISTRIBUTION WIDTH 14.9 % (11.6-14.6)
[2020-05-01] MEDS ORDERED: LEVOFLOXACIN 500MG PREMIX 100 ML IV ONE (18:15)
[2020-05-01 18:24] LABS: CHLORIDE 106 mEq/L (98-107)
[2020-05-01 18:28] LABS: ETHANOL BLOOD < 10 mg/dL
[2020-05-01 20:12] LABS: D-DIMER 0.45 mg/L FEU (<0.50); PARTIAL THROMBOPLASTIN TIME 26.2 sec (23.4-31.0); PROTHROMBIN TIME 10.5 sec (9.6-11.0)
[2020-05-01 23:15] VITALS: BP 108/58
[2020-05-01] MEDS ORDERED: ALLO100T PO (23:35)
[2020-05-01] MEDS ORDERED: LISI-648 PO (23:35)
[2020-05-01] MEDS ORDERED: HYDR200T35 PO (23:35)
[2020-05-01] MEDS ORDERED: SERT-112 PO (23:35)
[2020-05-01] MEDS ORDERED: FURO20TA4 PO (23:35)
[2020-05-01] MEDS ORDERED: BUDE6HFA INH (23:35)
[2020-05-01] MEDS ORDERED: ASCO-339 PO (23:35)
[2020-05-01] MEDS ORDERED: SPIR25TA6 PO (23:35)
[2020-05-02] MEDS ORDERED: IPRATROPIUM/ALBUTEROL 0.5-3(2.5)MG/3ML NEB HHN PRN
[2020-05-02] MEDS ORDERED: CEFTRIAXONE 1 G PREMIX 50 ML IV SCH (01:00)
[2020-05-02] MEDS: IPRATROPIUM/ALBUTEROL 0.5-3(2.5)MG/3ML NEB HHN SCH ×6 (01:18→21:28)
[2020-05-02] MEDS: METHYLPREDNISOLONE SOD SUCC 40 MG/ML VIAL IV SCH ×3 (01:37→21:04)
[2020-05-02] MEDS: AZITHROMYCIN 500 MG in DEXT 5% WATER 250 ML IV SCH (01:38)
[2020-05-02 04:00] VITALS: BP 110/62
[2020-05-02] MEDS ORDERED: *PATIENT'S OWN MEDICATION STORAGE XX SCH (05:30)
[2020-05-02 07:02] LABS: BASOPHILS % 0.3 % (0.0-2.0); EOSINOPHILS % 0.4 % (0.0-5.0); HEMATOCRIT. 32.2 % (36.0-48.0); HEMOGLOBIN. 10.8 g/dL (12.0-16.0); LYMPHOCYTES % 15.6 % (20.0-50.0); MEAN CORPUSCULAR HEMOGLOBIN 26.5 pg (28.0-32.0); MEAN CORPUSCULAR VOLUME 78.9 fL (81.0-99.0); MEAN PLATELET VOLUME 8.5 fl (7.4-10.4); MONOCYTES % 3.1 % (2.0-8.0); NEUTROPHILS % 80.6 % (40.0-76.0); PLATELET 293 x1000/uL (130-400); RED BLOOD CELL COUNT 4.08 mill/uL (4.2-5.4); RED CELL DISTRIBUTION WIDTH 14.9 % (11.6-14.6)
[2020-05-02] MEDS ORDERED: DEXTROSE 50% WATER 50ML SYRINGE IV PRN (07:30)
[2020-05-02 07:58] LABS: CHLORIDE 107 mEq/L (98-107)
[2020-05-02 08:00] VITALS: BP 132/65
[2020-05-02] MEDS ORDERED: PNEUMOCOCCAL 23-VAL P-SAC VAC 0.5 ML IM ONE (08:00)
[2020-05-02] MEDS: METFORMIN HCL 500MG TABLET PO SCH (08:12)
[2020-05-02] MEDS: INSULIN LISPRO 100 UNITS/ML SUBCUT SCH ×4 (08:13→21:00)
[2020-05-02 08:18] LABS: LDL CHOLESTEROL 83 mg/dL (5-100)
[2020-05-02 08:23] LABS: HDL CHOLESTEROL 81 mg/dL (40-59)
[2020-05-02] MEDS: CEFTRIAXONE 1,000 MG in DEXTROSE 5% WATER 50 ML IV SCH (09:55)
[2020-05-02] MEDS: ALLOPURINOL 100 MG TABLET PO SCH (09:56)
[2020-05-02] MEDS: SERTRALINE HCL 50MG TABLET PO SCH (09:56)
[2020-05-02] MEDS: HYDROXYCHLOROQUINE SULFATE 200MG TABLET PO SCH ×2 (09:56→17:51)
[2020-05-02] MEDS ORDERED: MORPHINE SULFATE 2 MG/ML CPJ (NOT FOR IM USE) IV PRN (10:15)
[2020-05-02 12:00] VITALS: BP 110/52
[2020-05-02] MEDS: BLOOD SUGAR DIAGNOSTIC STRIP TEST SCH ×3 (12:45→20:28)
[2020-05-02 16:00] VITALS: BP 100/50
[2020-05-02 20:00] VITALS: BP 110/48
[2020-05-02] MEDS: TRAMADOL 50MG TABLET PO PRN (20:48)
[2020-05-02] MEDS: TRAZODONE HCL 50MG TABLET PO SCH (21:03)
[2020-05-03] VITALS: BP 111/63
[2020-05-03] MEDS: AZITHROMYCIN 500 MG in DEXT 5% WATER 250 ML IV SCH (00:15)
[2020-05-03] MEDS: IPRATROPIUM/ALBUTEROL 0.5-3(2.5)MG/3ML NEB HHN SCH ×6 (01:13→20:54)
[2020-05-03 04:00] VITALS: BP 105/57
[2020-05-03] MEDS: METHYLPREDNISOLONE SOD SUCC 40 MG/ML VIAL IV SCH ×3 (05:15→21:10)
[2020-05-03] MEDS: BLOOD SUGAR DIAGNOSTIC STRIP TEST SCH ×4 (05:57→21:10)
[2020-05-03 08:00] VITALS: BP 116/57
[2020-05-03] MEDS: ALLOPURINOL 100 MG TABLET PO SCH (08:36)
[2020-05-03] MEDS: METFORMIN HCL 500MG TABLET PO SCH (08:36)
[2020-05-03] MEDS: HYDROXYCHLOROQUINE SULFATE 200MG TABLET PO SCH ×2 (08:36→17:07)
[2020-05-03] MEDS: SERTRALINE HCL 50MG TABLET PO SCH (08:37)
[2020-05-03] MEDS: CEFTRIAXONE 1,000 MG in DEXTROSE 5% WATER 50 ML IV SCH (08:37)
[2020-05-03] MEDS: INSULIN LISPRO 100 UNITS/ML SUBCUT SCH ×4 (08:40→21:09)
[2020-05-03 12:00] VITALS: BP 117/50
[2020-05-03] MEDS: TRAMADOL 50MG TABLET PO PRN (13:09)
[2020-05-03] MEDS ORDERED: HYDROCODONE/ACETAMINOPHEN 5/325MG TABLET PO NR (14:15)
[2020-05-03 16:00] VITALS: BP 110/43
[2020-05-03 20:00] VITALS: BP 112/47
[2020-05-03] MEDS ORDERED: QUETIAPINE FUMARATE 50MG TABLET PO SCH (21:00)
[2020-05-03] MEDS: TRAZODONE HCL 50MG TABLET PO SCH (21:11)
[2020-05-03] MEDS ORDERED: AZITHROMYCIN 500 MG TABLET PO SCH (22:00)
[2020-05-03] MEDS: HYDROCODONE/ACETAMINOPHEN 5/325MG TABLET PO PRN (22:05)
[2020-05-04] VITALS: BP 108/51
[2020-05-04] MEDS: IPRATROPIUM/ALBUTEROL 0.5-3(2.5)MG/3ML NEB HHN SCH ×4 (03:12→16:47)
[2020-05-04 04:00] VITALS: BP 101/45
[2020-05-04] MEDS: BLOOD SUGAR DIAGNOSTIC STRIP TEST SCH ×2 (06:05→13:00)
[2020-05-04] MEDS: METHYLPREDNISOLONE SOD SUCC 40 MG/ML VIAL IV SCH (06:13)
[2020-05-04] MEDS: HYDROCODONE/ACETAMINOPHEN 5/325MG TABLET PO PRN (06:38)
[2020-05-04] MEDS ORDERED: BUDE6HFA INH (07:38)
[2020-05-04] MEDS ORDERED: ALBU18HF2 IH (07:38)
[2020-05-04] MEDS ORDERED: P20 MT (07:38)
[2020-05-04] MEDS ORDERED: IPRA3AMP9 NEB (07:38)
[2020-05-04 08:00] VITALS: BP 105/45
[2020-05-04] MEDS: METFORMIN HCL 500MG TABLET PO SCH (08:12)
[2020-05-04] MEDS: HYDROXYCHLOROQUINE SULFATE 200MG TABLET PO SCH (08:13)
[2020-05-04] MEDS: ALLOPURINOL 100 MG TABLET PO SCH (08:13)
[2020-05-04] MEDS: CEFTRIAXONE 1,000 MG in DEXTROSE 5% WATER 50 ML IV SCH (08:13)
[2020-05-04] MEDS: SERTRALINE HCL 50MG TABLET PO SCH (08:13)
[2020-05-04] MEDS: INSULIN LISPRO 100 UNITS/ML SUBCUT SCH ×2 (08:15→13:35)
[2020-05-04 12:00] VITALS: BP 110/44
[2020-05-04 15:00] VITALS: BP 110/44
== END 2020-05-04 17:01 | disposition home or self-care (01) | DRG 141 ==
LOC: ER 17:02 → 8WST 21:20 → EDBEDREQ 21:24 → EDBEDREQTM 21:24 → ENRESERV 21:31
PROVIDERS: ADMIT Internal Medicine; ATTEND Internal Medicine
DX: J45.901 Unspecified asthma with (acute) exacerbation (principal); M94.0 Chondrocostal junction syndrome [Tietze]; I10 Essential (primary) hypertension; N17.9 Acute kidney failure, unspecified; E11.9 Type 2 diabetes mellitus without complications; E44.1 Mild protein-calorie malnutrition; E66.9 Obesity, unspecified; M19.90 Unspecified osteoarthritis, unspecified site; Z20.822 Contact with and (suspected) exposure to COVID-19; Z82.49 Family history of ischemic heart disease and other diseases of the circulatory system; Z91.041 Radiographic dye allergy status; Z79.899 Other long term (current) drug therapy; Z79.84 Long term (current) use of oral hypoglycemic drugs; Z79.82 Long term (current) use of aspirin; Z79.01 Long term (current) use of anticoagulants; Z68.43 Body mass index [BMI] 50.0-59.9, adult
CPT/HCPCS: 36415; 71045; 78580; 80048; 80053; 80061; 80305; 80320; 82962; 83036; 83605; 83880; 84484; 85025; 85379; 87426; 93005; 93306; 94640; 97162; 99291; J0456; J0696; J1815; J1956; J2270; J2405; J2920; J7030; J7060; G0480

== ENCOUNTER 2020-12-18 01:57 | Emergency (ER) | payer OTHER ==
[~2020-12-18] VITALS: Ht 165.1 cm; Wt 100.0 kg
[~2020-12-18 01:57] MED LIST changes: +ALLO100T PO; -AMLO2.5T45 PO; -APIX5TAB PO; +ASCO-339 PO; +BUDE6HFA INH; -FERR-43 PO; +FURO20TA4 PO; +HYDR200T35 PO; +IPRA3AMP9 NEB; +LISI-648 PO; -MULT-1146 PO; +P20 MT; -PANT40TA51 PO; -QUET25TA PO; +SERT-112 PO; +SPIR25TA6 PO
[2020-12-18] MEDS ORDERED: ASPIRIN 81MG TABLET PO ONE (02:30)
[2020-12-18] MEDS ORDERED: NITROGLYCERIN 0.4MG TABLET SL SL PRN (02:30)
[2020-12-18 02:47] LABS: CHLORIDE 106 mEq/L (98-107)
[2020-12-18 02:48] LABS: BASOPHILS % 0.9 % (0.0-2.0); EOSINOPHILS % 4.6 % (0.0-5.0); HEMATOCRIT. 32.5 % (36.0-48.0); HEMOGLOBIN. 11.2 g/dL (12.0-16.0); MEAN CORPUSCULAR HEMOGLOBIN 27.4 pg (28.0-32.0); MEAN CORPUSCULAR VOLUME 79.4 fL (81.0-99.0); MEAN PLATELET VOLUME 8.1 fl (7.4-10.4); MONOCYTES % 8.8 % (2.0-8.0); NEUTROPHILS % 54.7 % (40.0-76.0); PLATELET 333 x1000/uL (130-400); RED CELL DISTRIBUTION WIDTH 14.9 % (11.6-14.6)
[2020-12-18] MEDS ORDERED: HYDROCODONE/ACETAMINOPHEN 10/325MG TABLET PO SCH (03:45)
[2020-12-18 04:58] VITALS: BP 128/64
== END 2020-12-18 04:59 | disposition home or self-care (01) ==
LOC: ER 01:57
DX: R07.89 Other chest pain (principal); F41.9 Anxiety disorder, unspecified; E11.9 Type 2 diabetes mellitus without complications; I11.0 Hypertensive heart disease with heart failure; I50.9 Heart failure, unspecified; M19.90 Unspecified osteoarthritis, unspecified site; Z86.14 Personal history of Methicillin resistant Staphylococcus aureus infection; Z79.82 Long term (current) use of aspirin; Z79.84 Long term (current) use of oral hypoglycemic drugs; Z91.041 Radiographic dye allergy status
CPT/HCPCS: 36415; 71045; 80053; 83880; 84484; 85025; 93005; 99285; Z7610

== ENCOUNTER 2021-06-18 23:27 | Emergency (ER) | payer OTHER ==
[~2021-06-18] VITALS: Ht 162.6 cm; Wt 131.0 kg
[2021-06-18 23:29] VITALS: BP 127/62
[2021-06-19] MEDS ORDERED: DOXY100T28 MT (00:12)
[2021-06-19] MEDS ORDERED: DIPHENHYDRAMINE 25MG CAPSULE PO ONE (00:30)
== END 2021-06-19 00:56 | disposition home or self-care (01) ==
LOC: ER 23:27
DX: R21 Rash and other nonspecific skin eruption (principal); E11.9 Type 2 diabetes mellitus without complications; I11.0 Hypertensive heart disease with heart failure; I50.9 Heart failure, unspecified; Z79.899 Other long term (current) drug therapy; Z91.041 Radiographic dye allergy status; Z79.82 Long term (current) use of aspirin
CPT/HCPCS: 99283; Q0163

== ENCOUNTER 2021-09-01 13:10 | Inpatient (IN) | payer OTHER ==
[~2021-09-01] VITALS: Ht 162.6 cm; Wt 151.0 kg
[~2021-09-01 13:10] MED LIST changes: +DOXY100T28 MT
[2021-09-01] MEDS ORDERED: ASPIRIN 81MG TABLET PO ONE (14:00)
[2021-09-01] MEDS ORDERED: METHYLPREDNISOLONE SOD SUCC 40 MG/ML VIAL IV ONE ×2 (14:15→18:30)
[2021-09-01 14:45] LABS: BASOPHILS % 0.2 % (0.0-2.0); EOSINOPHILS % 12.6 % (0.0-5.0); HEMATOCRIT. 29.5 % (36.0-48.0); LYMPHOCYTES % 23.1 % (20.0-50.0); MEAN CORPUSCULAR HEMOGLOBIN 27.9 pg (28.0-32.0); MEAN CORPUSCULAR VOLUME 82.3 fL (81.0-99.0); MEAN PLATELET VOLUME 8.3 fl (7.4-10.4); MONOCYTES % 8.8 % (2.0-8.0); NEUTROPHILS % 55.3 % (40.0-76.0); PLATELET 334 x1000/uL (130-400); RED BLOOD CELL COUNT 3.59 mill/uL (4.2-5.4)
[2021-09-01 14:54] LABS: CHLORIDE 106 mEq/L (98-107)
[2021-09-01] MEDS ORDERED: MAGNESIUM/ALUMINUM HYDROXIDE/SIMETHICONE 30ML UDC PO STA (15:34)
[2021-09-01] MEDS ORDERED: VISCOUS LIDOCAINE 2% 15 ML UDC PO STA (15:34)
[2021-09-01] MEDS ORDERED: ENOXAPARIN 120MG/0.8ML SYR SUBCUT ONE (15:45)
[2021-09-01] MEDS ORDERED: FAMOTIDINE 20MG TABLET PO ONE (15:45)
[2021-09-01] MEDS ORDERED: ENOXAPARIN 150MG/ML SYR SUBCUT NR (16:30)
[2021-09-01] MEDS ORDERED: VANCOMYCIN 1G PREMIX 200 ML IV SCH (17:15)
[2021-09-01] MEDS ORDERED: CEFTRIAXONE 1 G PREMIX 50 ML IV ONE (17:15)
[2021-09-01] MEDS ORDERED: DIPHENHYDRAMINE 50MG/ML VIAL IV ONE (18:30)
[2021-09-01 19:17] LABS: CLARITY URINE CLEAR (CLEAR); COLOR URINE YELLOW (YELLOW); KETONES URINE NEGATIVE (NEGATIVE); LEUKOCYTE ESTERASE URINE NEGATIVE (NEGATIVE); NITRITE URINE NEGATIVE (NEGATIVE); OCCULT BLOOD URINE NEGATIVE (NEGATIVE); PH URINE 5.5 (4.5-8.0); PROTEIN URINE NEGATIVE (NEGATIVE); SPECIFIC GRAVITY URINE 1.015 (1.005-1.030); UROBILINOGEN URINE 0.2 E.U./dL (0.2-1.0)
[2021-09-01] MEDS ORDERED: NITROGLYCERIN OINT 1GM/INCH UDPKT TD ONE (20:00)
[2021-09-01] MEDS ORDERED: NITROGLYCERIN 0.4MG TABLET SL SL PRN (20:00)
[2021-09-01] MEDS ORDERED: FUROSEMIDE 40MG/4ML VIAL IVP ONE (20:00)
[2021-09-01] MEDS ORDERED: DIPHENHYDRAMINE 50MG/ML VIAL IV NR (20:30)
[2021-09-01] MEDS: NITROGLYCERIN 0.4MG TABLET SL SL PRN (20:35)
[2021-09-01 21:00] VITALS: BP_SYST 103; BP_SYST 138; BP_DIAS 52; BP_DIAS 59
[2021-09-01 22:00] VITALS: BP 116/44
[2021-09-01] MEDS ORDERED: ACETAMINOPHEN 325MG TABLET PO PRN (22:30)
[2021-09-01] MEDS ORDERED: MORPHINE SULFATE 2 MG/ML CPJ (NOT FOR IM USE) IV PRN (22:30)
[2021-09-01] MEDS ORDERED: IPRATROPIUM/ALBUTEROL 0.5-3(2.5)MG/3ML NEB HHN PRN (22:30)
[2021-09-01] MEDS ORDERED: CLONIDINE 0.1MG TABLET PO PRN (22:30)
[2021-09-01] MEDS ORDERED: ONDANSETRON HCL 4MG/2ML INJ IV PRN (22:30)
[2021-09-01 23:00] VITALS: BP 110/48
[2021-09-01] MEDS: ENOXAPARIN 40MG/0.4ML SYR SUBCUT SCH (23:10)
[2021-09-02] VITALS (12 sets, daily range): BP systolic 15–141; BP diastolic 40–68
[2021-09-02] MEDS ORDERED: DEXTROSE 50% WATER 50ML SYRINGE IV PRN (05:15)
[2021-09-02 06:23] LABS: BASOPHILS % 0.1 % (0.0-2.0); EOSINOPHILS % 0.1 % (0.0-5.0); HEMATOCRIT. 29.3 % (36.0-48.0); HEMOGLOBIN. 9.9 g/dL (12.0-16.0); LYMPHOCYTES % 15.3 % (20.0-50.0); MEAN CORPUSCULAR HEMOGLOBIN 27.6 pg (28.0-32.0); MEAN CORPUSCULAR VOLUME 81.6 fL (81.0-99.0); MEAN PLATELET VOLUME 8.5 fl (7.4-10.4); MONOCYTES % 5.2 % (2.0-8.0); NEUTROPHILS % 79.3 % (40.0-76.0); PLATELET 313 x1000/uL (130-400); RED BLOOD CELL COUNT 3.59 mill/uL (4.2-5.4); RED CELL DISTRIBUTION WIDTH 14.8 % (11.6-14.6)
[2021-09-02 06:37] LABS: CHLORIDE 107 mEq/L (98-107)
[2021-09-02] MEDS: BLOOD SUGAR DIAGNOSTIC STRIP TEST SCH ×4 (06:43→21:00)
[2021-09-02] MEDS: INSULIN LISPRO 100 UNITS/ML SUBCUT SCH ×4 (08:00→21:00)
[2021-09-02] MEDS: NITROGLYCERIN 0.4MG TABLET SL SL PRN ×2 (08:36→12:13)
[2021-09-02] MEDS: DIPHENHYDRAMINE 50MG/ML VIAL IV PRN ×2 (08:36→21:38)
[2021-09-02] MEDS ORDERED: FUROSEMIDE 40MG/4ML VIAL IVP SCH (10:15)
[2021-09-02] MEDS: ENOXAPARIN 40MG/0.4ML SYR SUBCUT SCH (10:37)
[2021-09-02] MEDS: AMLODIPINE 2.5MG TABLET PO SCH (11:15)
[2021-09-02 11:23] LABS: BG BASE EXCESS 0.4 mmol/L (-2.0-2.0); BG CARBOXYHEMOGLOBIN 0.3 % (0.5-1.5); BG DEOXYHEMOGLOBIN 2.4 % (0.0-5.0); BG FRACTION INSPIRED OXYGEN 28; BG HCO3 ACT 25.9 mmol/L (22.0-26.0); BG METHEMOGLOBIN 0.3 % (0.0-1.5); BG OXYGEN SATURATION 97.6 % (92.0-98.5); BG PCO2 45.9 mmHg (35.0-45.0); BG PO2 126.1 mmHg (75.0-100.0); BG SAMPLE SITE RIGHT RADIAL; BG TOTAL HEMOGLOBIN 10.4 g/dL (12.0-18.0); BG VENT MODE NASAL CANNULA
[2021-09-02] MEDS: ASPIRIN 81MG EC TABLET PO SCH (12:09)
[2021-09-02] MEDS: HYDROCODONE/ACETAMINOPHEN 5/325MG TABLET PO PRN ×2 (13:00→21:38)
[2021-09-02] MEDS: CAPSAICIN 0.025% CREAM 60GM TOP SCH ×2 (14:29→21:46)
[2021-09-02] MEDS: SODIUM CHLORIDE 0.45% 1,000 ML IV SCH (14:30)
[2021-09-02] MEDS ORDERED: CEFTRIAXONE 1,000 MG in DEXTROSE 5% WATER 50 ML IV SCH (15:15)
[2021-09-02] MEDS: CEFTRIAXONE 1,000 MG in DEXTROSE 5% WATER 50 ML IV SCH (16:26)
[2021-09-02] MEDS ORDERED: VANCOMYCIN 1,500 MG in DEXT 5% WATER 250 ML IV SCH (17:00)
[2021-09-03] VITALS (12 sets, daily range): BP systolic 96–147; BP diastolic 54–82
[2021-09-03] MEDS: SODIUM CHLORIDE 0.45% 1,000 ML IV SCH (00:47)
[2021-09-03 06:15] LABS: CHLORIDE 105 mEq/L (98-107)
[2021-09-03 06:25] LABS: BASOPHILS % 0.4 % (0.0-2.0); EOSINOPHILS % 12.9 % (0.0-5.0); HEMATOCRIT. 32.6 % (36.0-48.0); HEMOGLOBIN. 10.7 g/dL (12.0-16.0); LYMPHOCYTES % 37.2 % (20.0-50.0); MEAN CORPUSCULAR HEMOGLOBIN 27.5 pg (28.0-32.0); MEAN CORPUSCULAR VOLUME 83.4 fL (81.0-99.0); MEAN PLATELET VOLUME 8.3 fl (7.4-10.4); NEUTROPHILS % 41.5 % (40.0-76.0); PLATELET 363 x1000/uL (130-400); RED BLOOD CELL COUNT 3.91 mill/uL (4.2-5.4); RED CELL DISTRIBUTION WIDTH 14.7 % (11.6-14.6)
[2021-09-03] MEDS: INSULIN LISPRO 100 UNITS/ML SUBCUT SCH ×4 (07:43→21:00)
[2021-09-03] MEDS: BLOOD SUGAR DIAGNOSTIC STRIP TEST SCH ×4 (07:43→21:00)
[2021-09-03] MEDS: CAPSAICIN 0.025% CREAM 60GM TOP SCH ×2 (09:00→21:00)
[2021-09-03] MEDS: PREDNISONE 20MG TABLET PO SCH (09:34)
[2021-09-03] MEDS: ASPIRIN 81MG EC TABLET PO SCH (09:35)
[2021-09-03] MEDS: AMLODIPINE 2.5MG TABLET PO SCH (09:35)
[2021-09-03] MEDS: HYDROCODONE/ACETAMINOPHEN 5/325MG TABLET PO PRN ×2 (09:35→20:18)
[2021-09-03] MEDS: DIPHENHYDRAMINE 50MG/ML VIAL IV PRN ×2 (09:35→20:18)
[2021-09-03] MEDS: ENOXAPARIN 40MG/0.4ML SYR SUBCUT SCH ×2 (09:36→21:45)
[2021-09-03] MEDS: BACITRACIN 15GM TUBE TOP SCH ×2 (11:21→21:51)
[2021-09-03] MEDS: HYDROCORTISONE 2.5% OINT 20GM TOP SCH ×2 (11:21→21:49)
[2021-09-03] MEDS ORDERED: VANCOMYCIN 1GM PMX (XELLIA) 200 ML IV SCH (12:00)
[2021-09-03] MEDS ORDERED: FUROSEMIDE 40MG/4ML VIAL IVP NR (12:30)
[2021-09-03] MEDS: VANCOMYCIN 1GM PMX (XELLIA) 200 ML IV SCH (15:16)
[2021-09-03] MEDS: NYSTATIN POWDER 15GM TOP SCH ×2 (15:58→18:07)
[2021-09-03] MEDS ORDERED: VANCOMYCIN 1G PREMIX 200 ML IV SCH (17:00)
[2021-09-03] MEDS: CEFTRIAXONE 1,000 MG in DEXTROSE 5% WATER 50 ML IV SCH (18:07)
[2021-09-03] MEDS ORDERED: NALOXONE HCL 0.4MG/ML VIAL IV PRN (20:00)
[2021-09-03] MEDS ORDERED: QUETIAPINE FUMARATE 50MG TABLET PO SCH (21:00)
[2021-09-03] MEDS ORDERED: MEDICATION NOT ON FORMULARY EA (Trazodone Hcl 100 MG) PO SCH (21:00)
[2021-09-03] MEDS ORDERED: TRAZODONE HCL 50MG TABLET PO SCH (21:00)
[2021-09-03] MEDS ORDERED: MEDICATION NOT ON FORMULARY EA (Quetiapine Fumarate (Seroquel) 300 MG) PO SCH (21:00)
[2021-09-03] MEDS: NYSTATIN 100,000 UNITS/GM OINT 15GM TOP SCH (21:48)
[2021-09-04 02:00] VITALS: BP 97/53
[2021-09-04] MEDS: HYDROCODONE/ACETAMINOPHEN 5/325MG TABLET PO PRN (02:30)
[2021-09-04 04:00] VITALS: BP 120/74
[2021-09-04] MEDS: HYDROCORTISONE 2.5% OINT 20GM TOP SCH (05:44)
[2021-09-04] MEDS: BLOOD SUGAR DIAGNOSTIC STRIP TEST SCH ×2 (06:49→12:23)
[2021-09-04] MEDS: INSULIN LISPRO 100 UNITS/ML SUBCUT SCH ×2 (07:16→12:23)
[2021-09-04 08:00] VITALS: BP 124/74
[2021-09-04] MEDS: ASPIRIN 81MG EC TABLET PO SCH (08:46)
[2021-09-04] MEDS: NYSTATIN POWDER 15GM TOP SCH ×2 (08:47→12:23)
[2021-09-04] MEDS: PREDNISONE 20MG TABLET PO SCH (08:47)
[2021-09-04] MEDS: ENOXAPARIN 40MG/0.4ML SYR SUBCUT SCH (08:47)
[2021-09-04] MEDS: AMLODIPINE 2.5MG TABLET PO SCH (08:47)
[2021-09-04] MEDS: BACITRACIN 15GM TUBE TOP SCH (08:48)
[2021-09-04] MEDS: CAPSAICIN 0.025% CREAM 60GM TOP SCH (08:48)
[2021-09-04] MEDS: NYSTATIN 100,000 UNITS/GM OINT 15GM TOP SCH (08:49)
[2021-09-04] MEDS: DIPHENHYDRAMINE 50MG/ML VIAL IV PRN (08:53)
[2021-09-04 12:00] VITALS: BP 138/82
[2021-09-04] MEDS: VANCOMYCIN 1GM PMX (XELLIA) 200 ML IV SCH (12:00)
[2021-09-04] MEDS ORDERED: NYST15OI TP (12:07)
[2021-09-04] MEDS ORDERED: SULF1TAB48 MT (12:07)
[2021-09-04] MEDS ORDERED: AMOX1TAB16 MT (12:07)
[2021-09-04 12:56] VITALS: BP 138/82
== END 2021-09-04 15:00 | disposition home or self-care (01) | DRG 383 ==
LOC: ER 13:10 → 5EST 17:16 → ENRESERV 19:29
PROVIDERS: ADMIT Internal Medicine; ATTEND Internal Medicine
DX: L03.115 Cellulitis of right lower limb (principal); J96.01 Acute respiratory failure with hypoxia; N17.0 Acute kidney failure with tubular necrosis; E43 Unspecified severe protein-calorie malnutrition; I50.33 Acute on chronic diastolic (congestive) heart failure; D63.8 Anemia in other chronic diseases classified elsewhere; Z68.43 Body mass index [BMI] 50.0-59.9, adult; I11.0 Hypertensive heart disease with heart failure; L03.116 Cellulitis of left lower limb; E11.9 Type 2 diabetes mellitus without complications; E78.00 Pure hypercholesterolemia, unspecified; E66.09 Other obesity due to excess calories; Z20.822 Contact with and (suspected) exposure to COVID-19; E78.5 Hyperlipidemia, unspecified; F41.9 Anxiety disorder, unspecified; B95.62 Methicillin resistant Staphylococcus aureus infection as the cause of diseases classified elsewhere; J45.909 Unspecified asthma, uncomplicated; E66.01 Morbid (severe) obesity due to excess calories; M06.9 Rheumatoid arthritis, unspecified; G47.33 Obstructive sleep apnea (adult) (pediatric); F43.9 Reaction to severe stress, unspecified; R07.89 Other chest pain; R00.0 Tachycardia, unspecified; F43.10 Post-traumatic stress disorder, unspecified; M79.7 Fibromyalgia; Z88.8 Allergy status to other drugs, medicaments and biological substances; Z79.899 Other long term (current) drug therapy; Z79.82 Long term (current) use of aspirin; Z79.84 Long term (current) use of oral hypoglycemic drugs; Z82.49 Family history of ischemic heart disease and other diseases of the circulatory system; Z86.711 Personal history of pulmonary embolism; Z91.041 Radiographic dye allergy status
CPT/HCPCS: 36415; 36600; 71045; 80048; 80053; 81003; 82375; 82805; 82962; 83605; 83880; 84484; 85025; 85379; 87426; 93005; 93306; 93970; 99291; C9803; J0696; J1200; J1650; J1815; J1940; J2270; J2920; J3370; J7060; J7512

== ENCOUNTER 2021-09-10 01:07 | Inpatient (IN) | payer OTHER ==
[~2021-09-10] VITALS: Ht 170.2 cm; Wt 112.7 kg
[~2021-09-10 01:07] MED LIST changes: +AMOX1TAB16 MT; +NYST15OI TP; -P20 MT; +SULF1TAB48 MT
[2021-09-10] MEDS ORDERED: KETOROLAC 30MG/ML VIAL IV STA (01:20)
[2021-09-10 03:37] LABS: CHLORIDE 106 mEq/L (98-107)
[2021-09-10] MEDS ORDERED: KETOROLAC 30MG/ML VIAL IV NR (03:39)
[2021-09-10 03:42] LABS: HEMATOCRIT. 31.4 % (36.0-48.0); HEMOGLOBIN. 10.5 g/dL (12.0-16.0); MEAN CORPUSCULAR HEMOGLOBIN 27.5 pg (28.0-32.0); MEAN CORPUSCULAR VOLUME 81.9 fL (81.0-99.0); PLATELET 358 x1000/uL (130-400); RED BLOOD CELL COUNT 3.83 mill/uL (4.2-5.4); RED CELL DISTRIBUTION WIDTH 14.6 % (11.6-14.6)
[2021-09-10 04:15] LABS: PLATELET ESTIMATE NORMAL
[2021-09-10] MEDS ORDERED: IPRATROPIUM/ALBUTEROL 0.5-3(2.5)MG/3ML NEB HHN PRN (08:30)
[2021-09-10] MEDS ORDERED: ACETAMINOPHEN 325MG TABLET PO PRN (08:30)
[2021-09-10] MEDS ORDERED: ONDANSETRON HCL 4MG/2ML INJ IV PRN (08:30)
[2021-09-10] MEDS ORDERED: CLONIDINE 0.1MG TABLET PO PRN (08:30)
[2021-09-10] MEDS ORDERED: NALOXONE HCL 0.4MG/ML VIAL IV PRN (09:00)
[2021-09-10] MEDS: ENOXAPARIN 40MG/0.4ML SYR SUBCUT SCH (09:22)
[2021-09-10] MEDS: DIPHENHYDRAMINE 50MG/ML VIAL IV PRN ×2 (09:22→19:43)
[2021-09-10 11:30] VITALS: BP 118/41
[2021-09-10 12:00] VITALS: BP 118/41
[2021-09-10] MEDS ORDERED: REGADENOSON 0.4 MG/5 ML IV NR (13:15)
[2021-09-10] MEDS: PANTOPRAZOLE SODIUM 40 MG/VIAL IV SCH (13:40)
[2021-09-10] MEDS: MORPHINE SULFATE 2 MG/ML CPJ (NOT FOR IM USE) IV PRN ×2 (13:41→21:31)
[2021-09-10 16:00] VITALS: BP 124/86
[2021-09-10] MEDS ORDERED: DEXTROSE 50% WATER 50ML SYRINGE IV PRN (18:30)
[2021-09-10 20:00] VITALS: BP 133/53
[2021-09-10] MEDS ORDERED: PNEUMOCOCCAL 23-VAL P-SAC VAC 0.5 ML IM ONE (21:00)
[2021-09-10] MEDS: BLOOD SUGAR DIAGNOSTIC STRIP TEST SCH (21:22)
[2021-09-10] MEDS: INSULIN LISPRO 100 UNITS/ML SUBCUT SCH (21:22)
[2021-09-11] VITALS: BP 119/33
[2021-09-11] MEDS: DIPHENHYDRAMINE 50MG/ML VIAL IV PRN ×2 (02:57→21:19)
[2021-09-11 04:00] VITALS: BP 143/61
[2021-09-11 06:11] LABS: CHLORIDE 107 mEq/L (98-107)
[2021-09-11 06:33] LABS: HEMATOCRIT. 28.9 % (36.0-48.0); HEMOGLOBIN. 9.8 g/dL (12.0-16.0); MEAN CORPUSCULAR HEMOGLOBIN 27.9 pg (28.0-32.0); MEAN CORPUSCULAR VOLUME 82.1 fL (81.0-99.0); MEAN PLATELET VOLUME 8.1 fl (7.4-10.4); PLATELET 313 x1000/uL (130-400); RED BLOOD CELL COUNT 3.52 mill/uL (4.2-5.4); RED CELL DISTRIBUTION WIDTH 14.6 % (11.6-14.6)
[2021-09-11] MEDS: INSULIN LISPRO 100 UNITS/ML SUBCUT SCH ×4 (07:50→22:04)
[2021-09-11 08:00] VITALS: BP 140/69
[2021-09-11] MEDS: BLOOD SUGAR DIAGNOSTIC STRIP TEST SCH ×4 (08:19→21:35)
[2021-09-11] MEDS ORDERED: LIDOCAINE HCL 1% 10 MG/ML 10ML VIAL ONE (10:55)
[2021-09-11] MEDS ORDERED: FUROSEMIDE 40MG/4ML VIAL IVP NR (11:00)
[2021-09-11 12:00] VITALS: BP 142/75
[2021-09-11] MEDS: ENOXAPARIN 40MG/0.4ML SYR SUBCUT SCH (12:01)
[2021-09-11] MEDS: PANTOPRAZOLE SODIUM 40 MG/VIAL IV SCH (12:01)
[2021-09-11] MEDS: MORPHINE SULFATE 2 MG/ML CPJ (NOT FOR IM USE) IV PRN (12:09)
[2021-09-11] MEDS: ALLOPURINOL 100 MG TABLET PO SCH (13:53)
[2021-09-11] MEDS: SPIRONOLACTONE 25MG TABLET PO SCH (13:53)
[2021-09-11] MEDS: PIPERACILLIN/TAZOBACTAM 3.375 G in DEXTROSE 5% WATER 50 ML IV SCH ×2 (14:00→21:19)
[2021-09-11 16:00] VITALS: BP 113/47
[2021-09-11 20:00] VITALS: BP 107/55
[2021-09-11] MEDS: QUETIAPINE FUMARATE 50MG TABLET PO SCH (21:18)
[2021-09-11] MEDS: TRAZODONE HCL 50MG TABLET PO SCH (21:18)
[2021-09-12] VITALS: BP 115/50
[2021-09-12] MEDS: MORPHINE SULFATE 2 MG/ML CPJ (NOT FOR IM USE) IV PRN ×2 (00:35→22:09)
[2021-09-12 04:00] VITALS: BP 129/54
[2021-09-12] MEDS: PIPERACILLIN/TAZOBACTAM 3.375 G in DEXTROSE 5% WATER 50 ML IV SCH ×3 (05:52→22:40)
[2021-09-12] MEDS: BLOOD SUGAR DIAGNOSTIC STRIP TEST SCH ×4 (06:51→21:44)
[2021-09-12 07:23] LABS: HEMATOCRIT. 27.2 % (36.0-48.0); HEMOGLOBIN. 9.3 g/dL (12.0-16.0); MEAN CORPUSCULAR HEMOGLOBIN 28.2 pg (28.0-32.0); MEAN CORPUSCULAR VOLUME 82.3 fL (81.0-99.0); MEAN PLATELET VOLUME 8.3 fl (7.4-10.4); PLATELET 272 x1000/uL (130-400); RED BLOOD CELL COUNT 3.31 mill/uL (4.2-5.4)
[2021-09-12] MEDS: INSULIN LISPRO 100 UNITS/ML SUBCUT SCH ×4 (07:49→21:00)
[2021-09-12 08:00] VITALS: BP 114/54
[2021-09-12] MEDS: PANTOPRAZOLE SODIUM 40 MG/VIAL IV SCH (09:43)
[2021-09-12] MEDS: SPIRONOLACTONE 25MG TABLET PO SCH (09:44)
[2021-09-12] MEDS: ENOXAPARIN 40MG/0.4ML SYR SUBCUT SCH (09:44)
[2021-09-12] MEDS: ALLOPURINOL 100 MG TABLET PO SCH (09:44)
[2021-09-12] MEDS: SERTRALINE HCL 100MG TABLET PO SCH (09:44)
[2021-09-12] MEDS: ASPIRIN 81MG EC TABLET PO SCH (09:44)
[2021-09-12] MEDS: HYDROXYCHLOROQUINE SULFATE 200MG TABLET PO SCH (12:07)
[2021-09-12 12:30] VITALS: BP 123/51
[2021-09-12] MEDS ORDERED: FUROSEMIDE 40MG TABLET PO SCH (12:30)
[2021-09-12] MEDS: DIPHENHYDRAMINE 50MG/ML VIAL IV PRN ×2 (12:45→21:01)
[2021-09-12 13:24] LABS: PLATELET ESTIMATE NORMAL
[2021-09-12 15:38] VITALS: BP 124/59
[2021-09-12] MEDS: CALCIUM CARBONATE/VITAMIN D3 500MG TABLET PO SCH (16:03)
[2021-09-12 16:40] LABS: PLATELET ESTIMATE NORMAL
[2021-09-12] MEDS ORDERED: NYSTATIN POWDER 15GM TOP SCH (18:00)
[2021-09-12 20:00] VITALS: BP 99/72
[2021-09-12] MEDS: NYSTATIN POWDER 15GM TOP SCH (20:55)
[2021-09-12] MEDS: FAMOTIDINE 20MG/2ML VIAL IV SCH (21:01)
[2021-09-12] MEDS: TRAZODONE HCL 50MG TABLET PO SCH (21:01)
[2021-09-12] MEDS: QUETIAPINE FUMARATE 50MG TABLET PO SCH (21:01)
[2021-09-12] MEDS: ENOXAPARIN 30MG/0.3ML SYR SUBCUT SCH (21:10)
[2021-09-12] MEDS: HYDROCORTISONE 1% CREAM 30GM TOP SCH (22:41)
[2021-09-13] VITALS: BP 112/43
[2021-09-13 02:08] LABS: CLARITY URINE CLEAR (CLEAR); COLOR URINE YELLOW (YELLOW); KETONES URINE TRACE (NEGATIVE); LEUKOCYTE ESTERASE URINE NEGATIVE (NEGATIVE); NITRITE URINE NEGATIVE (NEGATIVE); OCCULT BLOOD URINE NEGATIVE (NEGATIVE); PH URINE 5.5 (4.5-8.0); PROTEIN URINE NEGATIVE (NEGATIVE); SPECIFIC GRAVITY URINE 1.021 (1.005-1.030); UROBILINOGEN URINE 0.2 E.U./dL (0.2-1.0)
[2021-09-13 02:33] LABS: *AMPHETAMINES SCREEN URINE NEGATIVE (NEGATIVE); *BARBITURATES SCREEN URINE NEGATIVE (NEGATIVE); *BENZODIAZEPINES SCREEN URINE NEGATIVE (NEGATIVE); *COCAINE SCREEN URINE NEGATIVE (NEGATIVE); CANNABINOID URINE SCREEN NEGATIVE (NEGATIVE); METHADONE URINE SCREEN NEGATIVE (NEGATIVE); OPIATES URINE SCREEN PRESUMTIVE POSITIVE (NEGATIVE); PHENCYCLIDINE URINE SCREEN NEGATIVE (NEGATIVE)
[2021-09-13 04:00] VITALS: BP 112/48
[2021-09-13] MEDS: PIPERACILLIN/TAZOBACTAM 3.375 G in DEXTROSE 5% WATER 50 ML IV SCH ×2 (05:40→13:28)
[2021-09-13] MEDS: HYDROCORTISONE 1% CREAM 30GM TOP SCH ×3 (05:41→22:35)
[2021-09-13 06:37] LABS: HEMOGLOBIN. 9.2 g/dL (12.0-16.0); MEAN CORPUSCULAR VOLUME 82.5 fL (81.0-99.0); MEAN PLATELET VOLUME 8.2 fl (7.4-10.4); PLATELET 279 x1000/uL (130-400); RED BLOOD CELL COUNT 3.28 mill/uL (4.2-5.4); RED CELL DISTRIBUTION WIDTH 14.6 % (11.6-14.6)
[2021-09-13] MEDS: BLOOD SUGAR DIAGNOSTIC STRIP TEST SCH ×4 (06:51→21:37)
[2021-09-13] MEDS: INSULIN LISPRO 100 UNITS/ML SUBCUT SCH ×4 (07:50→22:26)
[2021-09-13 08:00] VITALS: BP 131/57
[2021-09-13] MEDS: HYDROXYCHLOROQUINE SULFATE 200MG TABLET PO SCH (09:26)
[2021-09-13] MEDS: CALCIUM CARBONATE/VITAMIN D3 500MG TABLET PO SCH (09:26)
[2021-09-13] MEDS: FAMOTIDINE 20MG/2ML VIAL IV SCH (09:26)
[2021-09-13] MEDS: ASPIRIN 81MG EC TABLET PO SCH (09:26)
[2021-09-13] MEDS: SERTRALINE HCL 100MG TABLET PO SCH (09:26)
[2021-09-13] MEDS: ALLOPURINOL 100 MG TABLET PO SCH (09:26)
[2021-09-13] MEDS: SPIRONOLACTONE 25MG TABLET PO SCH (09:29)
[2021-09-13] MEDS: NYSTATIN POWDER 15GM TOP SCH ×3 (09:33→17:43)
[2021-09-13] MEDS: ENOXAPARIN 30MG/0.3ML SYR SUBCUT SCH ×2 (09:33→21:40)
[2021-09-13] MEDS: MORPHINE SULFATE 2 MG/ML CPJ (NOT FOR IM USE) IV PRN ×2 (09:41→23:11)
[2021-09-13 12:00] VITALS: BP 107/63
[2021-09-13] MEDS: DIPHENHYDRAMINE 50MG/ML VIAL IV PRN ×2 (13:28→23:11)
[2021-09-13] MEDS ORDERED: AMOX1TAB16 MT (15:57)
[2021-09-13] MEDS ORDERED: NYST15OI TP (15:57)
[2021-09-13] MEDS ORDERED: DOXY100T28 MT (15:57)
[2021-09-13 16:00] VITALS: BP 121/64
[2021-09-13] MEDS ORDERED: DOBUTAMINE 250MG PREMIX 250 ML IV NR (16:00)
[2021-09-13 17:54] LABS: PLATELET ESTIMATE NORMAL
[2021-09-13] MEDS ORDERED: VANCOMYCIN 1,500 MG in DEXT 5% WATER 250 ML IV NR (19:00)
[2021-09-13 20:00] VITALS: BP 117/80
[2021-09-13] MEDS: TRAZODONE HCL 50MG TABLET PO SCH (21:38)
[2021-09-13] MEDS: QUETIAPINE FUMARATE 50MG TABLET PO SCH (21:39)
[2021-09-13] MEDS: BACITRACIN 15GM TUBE TOP SCH (21:46)
[2021-09-14] VITALS (7 sets, daily range): BP systolic 98–142; BP diastolic 32–72
[2021-09-14] MEDS ORDERED: SODIUM CHLORIDE 0.45% 1,000 ML IV ONE (05:00)
[2021-09-14] MEDS: HYDROCORTISONE 1% CREAM 30GM TOP SCH ×3 (06:15→22:00)
[2021-09-14] MEDS: BLOOD SUGAR DIAGNOSTIC STRIP TEST SCH ×4 (06:40→21:36)
[2021-09-14 06:42] LABS: HEMATOCRIT. 27.1 % (36.0-48.0); HEMOGLOBIN. 9.1 g/dL (12.0-16.0); MEAN CORPUSCULAR HEMOGLOBIN 27.8 pg (28.0-32.0); MEAN CORPUSCULAR VOLUME 82.6 fL (81.0-99.0); MEAN PLATELET VOLUME 8.2 fl (7.4-10.4); PLATELET 287 x1000/uL (130-400); RED BLOOD CELL COUNT 3.27 mill/uL (4.2-5.4); RED CELL DISTRIBUTION WIDTH 14.5 % (11.6-14.6)
[2021-09-14 06:44] LABS: CHLORIDE 108 mEq/L (98-107)
[2021-09-14] MEDS: INSULIN LISPRO 100 UNITS/ML SUBCUT SCH ×4 (07:46→21:00)
[2021-09-14] MEDS ORDERED: DOBUTAMINE 250MG PREMIX 250 ML IV ONE (08:22)
[2021-09-14] MEDS ORDERED: ESMOLOL HCL 10MG/ML 10ML VIAL IV ONE (08:38)
[2021-09-14] MEDS ORDERED: FAMOTIDINE 20MG/2ML VIAL IV SCH (09:00)
[2021-09-14] MEDS: HYDROXYCHLOROQUINE SULFATE 200MG TABLET PO SCH (12:01)
[2021-09-14] MEDS: SPIRONOLACTONE 25MG TABLET PO SCH (12:02)
[2021-09-14] MEDS: ALLOPURINOL 100 MG TABLET PO SCH (12:02)
[2021-09-14] MEDS: CALCIUM CARBONATE/VITAMIN D3 500MG TABLET PO SCH (12:03)
[2021-09-14] MEDS: SERTRALINE HCL 100MG TABLET PO SCH (12:03)
[2021-09-14] MEDS: ASPIRIN 81MG EC TABLET PO SCH (12:03)
[2021-09-14] MEDS: ENOXAPARIN 30MG/0.3ML SYR SUBCUT SCH ×2 (12:04→21:00)
[2021-09-14] MEDS: NYSTATIN POWDER 15GM TOP SCH ×3 (12:04→17:00)
[2021-09-14] MEDS: BACITRACIN 15GM TUBE TOP SCH ×2 (12:05→21:00)
[2021-09-14] MEDS: DIPHENHYDRAMINE 50MG/ML VIAL IV PRN ×2 (12:36→17:15)
[2021-09-14 14:50] LABS: PLATELET ESTIMATE NORMAL
[2021-09-14] MEDS ORDERED: VANCOMYCIN 1GM PMX (XELLIA) 200 ML IV SCH (16:00)
[2021-09-14] MEDS: QUETIAPINE FUMARATE 50MG TABLET PO SCH (21:00)
[2021-09-14] MEDS: TRAZODONE HCL 50MG TABLET PO SCH (21:00)
== END 2021-09-14 22:45 | disposition home health service (06) | DRG 203 ==
LOC: ER 01:07 → ENRESERV 09:38 → 6WST 11:00
PROVIDERS: ADMIT Internal Medicine; ATTEND Internal Medicine
PROC: 02HV33Z Insertion of Infusion Device into Superior Vena Cava, Percutaneous Approach (ICD-10-PCS; principal; 2021-09-11)
PROC: B548ZZA Ultrasonography of Superior Vena Cava, Guidance (ICD-10-PCS; 2021-09-11)
PROC: 4A12XM4 Monitoring of Cardiac Stress, External Approach (ICD-10-PCS; 2021-09-14)
PROC: 3E033HZ Introduction of Radioactive Substance into Peripheral Vein, Percutaneous Approach (ICD-10-PCS; 2021-09-14)
DX: M94.0 Chondrocostal junction syndrome [Tietze] (principal); N17.0 Acute kidney failure with tubular necrosis; E44.1 Mild protein-calorie malnutrition; I13.0 Hypertensive heart and chronic kidney disease with heart failure and stage 1 through stage 4 chronic kidney disease, or unspecified chronic kidney disease; I50.9 Heart failure, unspecified; E11.22 Type 2 diabetes mellitus with diabetic chronic kidney disease; I83.018 Varicose veins of right lower extremity with ulcer other part of lower leg; L03.115 Cellulitis of right lower limb; I83.028 Varicose veins of left lower extremity with ulcer other part of lower leg; L97.819 Non-pressure chronic ulcer of other part of right lower leg with unspecified severity; Z20.822 Contact with and (suspected) exposure to COVID-19; M79.7 Fibromyalgia; E66.01 Morbid (severe) obesity due to excess calories; G89.29 Other chronic pain; Z86.711 Personal history of pulmonary embolism; I89.0 Lymphedema, not elsewhere classified; E78.00 Pure hypercholesterolemia, unspecified; J45.909 Unspecified asthma, uncomplicated; I87.8 Other specified disorders of veins; N18.9 Chronic kidney disease, unspecified; F41.9 Anxiety disorder, unspecified; M19.90 Unspecified osteoarthritis, unspecified site; E78.5 Hyperlipidemia, unspecified; Z79.4 Long term (current) use of insulin; Z91.041 Radiographic dye allergy status; Z79.899 Other long term (current) drug therapy; Z82.49 Family history of ischemic heart disease and other diseases of the circulatory system; Z68.38 Body mass index [BMI] 38.0-38.9, adult; Z79.82 Long term (current) use of aspirin; L97.829 Non-pressure chronic ulcer of other part of left lower leg with unspecified severity; L03.116 Cellulitis of left lower limb
CPT/HCPCS: 36415; 36573; 71045; 80048; 80053; 80061; 80305; 81003; 82962; 83036; 83880; 84484; 85025; 87426; 93005; 93350; 93970; 99285; C1725; C9113; J1200; J1250; J1650; J1815; J1885; J1940; J2270; J2405; J2543; J3370; J3490; J7060